=== PATIENT | male | born 1975 | race Hispanic/Latino ===

== ENCOUNTER 2016-04-28 08:59 | Emergency (ER) | payer OTHER ==
[2016-04-28 09:03] VITALS: BP 135/84
--- NOTE | 2016-04-28 09:20 | ED GENERAL ADULT ---
History of Present Illness General Chief Complaint: Sore Throat, Dental Pain Stated Complaint: SORE THROAT Source: patient Exam Limitations: no limitations Vital Signs & Intake/Output Vital Signs & Intake/Output Vital Signs Date Time Temp Pulse Resp B/P Pulse O2 O2 Flow FiO2 Ox Delivery Rate 04/28 0903 97.5 68 20 135/84 99 Room Air Allergies Coded Allergies: No Known Allergies (04/28/16) Reconcile Medications Amoxicillin/Potassium Clav (Augmentin 875-125 Tablet) 875 MG-125 MG TABLET 1 TAB PO BID TONSILITIS Lidocaine HCl (Lidocaine HCl Viscous) 2 % SOLUTION 15 ML PO 4 TIMES/DAY PRN SORE THROAT Methylprednisolone. (Medrol) 4 MG TAB.DS.PK 1 DP PO AD TONSILITIS 6 on day 1 then reduce by one tablet daily until gone Triage Note: PT PRESENTS TO ER C/O OF SORETHROAT THAT STARTED A FEW DAYS AGO. PT DENIES FEVERS, PT AFEBRILE ON ARRIVAL. PT STATES IT IS HARD TO SWALLOW. Triage Nurses Notes Reviewed? yes Onset: Gradual Duration: day(s): (2) Timing: remote history Injury Environment: home Severity: moderate Severity Numbers: 7 Modifying Factors: Worsens With: other (SWALLOWING). HPI: Patient is a 40-year-old male presenting to the emergency department with chief complaint of sore throat that's been going on for the past 2 days with associated chills and fevers. Fevers were tactile. Did not take his temperature. No sick contacts or recent travel. Denies taking anything to help with symptoms. Pain is worse with eating. Pike is achy and sharp. Denies any nausea or vomiting. (PRINCE CALLAWAY) Past History Travel History Traveled to [place] past 21 day No Medical History Any Pertinent Medical History? see below for history Neurological: NONE EENT: NONE Cardiovascular: NONE Surgical History Surgical History: non-contributory Psychosocial History What is your primary language Marshallese Tobacco Use: Never used Family History Hx Contributory? No (PRINCE CALLAWAY) Review of Systems Review of Systems Constitutional: Reports: chills, fever, malaise. Comments Review of systems: See HPI, All other systems negative. Constitutional, no weight loss HEENT: No visual changes no congestion Cardiovascular: No chest pain ,palpitation , orthopnea or ankle swelling Skin, no jaundice no rashes Respiratory: No dyspnea cough sputum or hemoptysis GI: No nausea no vomiting : No dysuria No hematuria Muscle skeletal: no back pain, no neck pain, Neurologic: No numbness no confusion, no headaches Psych: No stress anxiety or depression,. Heme/endocrine: No bruising no bleeding no polyuria or polydipsia Immunology: No splenectomy or history of AIDS (PRINCE CALLAWAY) Physical Exam Physical Exam General Appearance: well developed/nourished, no apparent distress, alert, awake , comfortable Comments: Well-developed well-nourished person in no acute distress HEENT: Pupils equally round and reactive to light and accommodation. Nose is atraumatic. External auditory canal and Tympanic membranes clear. Pharynx moderately erythematous, bilateral tonsillar enlargement, left greater than right. White exudates bilaterally. Clearing secretions without difficulty. No obvious peritonsillar abscess. Neck: Supple, bilateral cervical lymphadenopathy, nontender, normal range of motion without pain or tenderness Back: Nontender Cardiac :Regular rate and rhythms no murmurs rubs or gallops, normal JVP Respiratory: Chest nontender. No respiratory distress.breath sounds clear to auscultation bilaterally Neuro: Alert oriented x3 Skin: No appreciable rash on exposed skin, skin is warm and dry. Psych: Mood and affect is normal, memory and judgment is normal. Core Measures ACS in differential dx? No CVA/TIA Diagnosis: No Severe Sepsis Present: No Septic Shock Present: No (PRINCE CALLAWAY) Progress Differential Diagnoses I considered the following diagnoses in my evaluation of the patient: tonsillitis, pharyngitis, strep, peritonsillar abscess Plan of Care: Orders Procedure Date/time Status THROAT CULTURE W/QUICK STREP 04/28 904 Active Initial ED EKG: none (PRINCE CALLAWAY) Departure Departure Time of Disposition: 924 Disposition: HOME OR SELF CARE Condition: Stable Clinical Impression Primary Impression: Acute bacterial tonsillitis Referrals: LAVERNE OROURKE MD PATIENT HAS NO PRIMARY CARE DR (PCP/Family) Additional Instructions: Follow-up with ear nose and throat call to make appointment. Take antibiotics, steroids and use mouthwash as directed. Return for worsening symptoms or concerns. Increase fluids. Departure Forms: Customer Survey General Discharge Information Prescriptions: Current Visit Scripts Lidocaine HCl (Lidocaine HCl Viscous) 15 ML PO 4 TIMES/DAY PRN SORE THROAT #200 ML Methylprednisolone. (Medrol) 1 DP PO AD #1 DP 6 on day 1 then reduce by one tablet daily until gone Amoxicillin/Potassium Clav (Augmentin 875-125 Tablet) 1 TAB PO BID #20 TAB (PRINCE CALLAWAY) PA/AUTOMATION TEST ENGINEER Co-Sign Statement Statement: ED Attending supervision documentation- [] I saw and evaluated the patient. I have also reviewed all the pertinent lab results and diagnostic results. I agree with the findings and the plan of care as documented in the PA's/AUTOMATION TEST ENGINEER's documentation. x I have reviewed the ED Record and agree with the PA's/AUTOMATION TEST ENGINEER's documentation. [] Additions or exceptions (if any) to the PAs/AUTOMATION TEST ENGINEER's note and plan are summarized below: [] (KARAN GARNER,FREDY) Critical Care Note Critical Care Note Critical Care Time: non-applicable (PRINCE CALLAWAY)
[2016-04-28] MEDS ORDERED: LIDOCAINE HCL V15 ML PO (09:26)
[2016-04-28] MEDS ORDERED: MEDROL4 M2 PO (09:26)
[2016-04-28] MEDS ORDERED: AUGMENTIN 875-1 EACH PO (09:26)
== END 2016-04-28 09:31 ==
LOC: ERH 08:59
DX: J03.90 Acute tonsillitis, unspecified (principal)
CPT/HCPCS: 87147

== ENCOUNTER 2016-05-09 00:40 | Emergency (ER) | payer OTHER ==
[~2016-05-09] VITALS: Ht 180.3 cm; Wt 84.4 kg
[~2016-05-09 00:40] MED LIST: AUGMENTIN 875-1 EACH PO; LIDOCAINE HCL V15 ML PO; MEDROL4 M2 PO
[2016-05-09 00:55] VITALS: BP 138/89
--- NOTE | 2016-05-09 01:31 | ED HEAD/FACIAL INJ COMPLAINT ---
History of Present Illness General Chief Complaint: General Adult Stated Complaint: "I DONT KNOW HAVE LUMP ON MY FACE" Source: patient Exam Limitations: no limitations Vital Signs & Intake/Output Vital Signs & Intake/Output Vital Signs Date Time Temp Pulse Resp B/P Pulse O2 O2 Flow FiO2 Ox Delivery Rate 05/09 0055 97.3 63 18 138/89 98 Room Air Allergies Coded Allergies: No Known Allergies (04/28/16) Reconcile Medications Amoxicillin/Potassium Clav (Augmentin 875-125 Tablet) 875 MG-125 MG TABLET 1 TAB PO BID TONSILITIS Cephalexin (Keflex) 500 MG CAPSULE 1 CAP PO 4 TIMES/DAY cellulitis Ibuprofen 800 MG TABLET 1 TAB PO TID PRN pain Lidocaine HCl (Lidocaine HCl Viscous) 2 % SOLUTION 15 ML PO 4 TIMES/DAY PRN SORE THROAT Methylprednisolone. (Medrol) 4 MG TAB.DS.PK 1 DP PO AD TONSILITIS 6 on day 1 then reduce by one tablet daily until gone Sulfamethoxazole/Trimethoprim (Bactrim Ds Tablet) 800 MG-160 MG TABLET 1 TAB PO BID cellulitis Triage Note: PT TO TRIAGE COMPLAINING OF RIGHT JAW PAIN. PT STATES HE STARTED TO NOTICE REDNESS ON TUESDAY, AND SWELLING BEGAN YESTERDAY. 12/07 JABBING PAIN. Triage Nurses Notes Reviewed? yes Onset: Gradual Severity: mild, moderate Location: rIGHT LOWER CHIN Method of Injury: unknown Loss of Consciousness: no loss of consciousness Associated Symptoms: REDNESS, TENDERNESS, SWELLING HPI: 40-year-old gentleman presents with redness tenderness and swelling of his right lower cheek. He states he is uncertain how it started. He has no dental pain, fever, problems swallowing. He is otherwise well and has no other concerns. Past History Travel History Traveled to [place] past 21 day No Medical History Any Pertinent Medical History? 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 No Review of Systems Review of Systems Constitutional: Reports: no symptoms. EENTM: Reports: no symptoms. Respiratory: Reports: no symptoms. Cardiovascular: Reports: no symptoms. GI: Reports: no symptoms. Genitourinary: Reports: no symptoms. Musculoskeletal: Reports: no symptoms. Skin: Reports: no symptoms. Neurological/Psychological: Reports: no symptoms. Hematologic/Endocrine: Reports: no symptoms. Immunologic/Allergic: Reports: no symptoms. All Other Systems: Reviewed and Negative Physical Exam Physical Exam General Appearance: well developed/nourished, mild distress Head: RIGHT LOWER CHIN WITH AN AREA APPROXIMATELY 3 X 3 CM OF INDURATION AND REDNESS AND TENDERNESS. tHERE IS NO FLUCTUATION CONSISTENT WITH ABSCESS. hE HAS NO DENTAL ABNORMALITIES. Eyes: Bilateral: PERRL, EOMI. Ears, Nose, Throat: normal pharynx, normal ENT inspection, hearing grossly normal Neck: normal inspection, supple Respiratory: normal breath sounds Cardiovascular: regular rate/rhythm Gastrointestinal: soft, non-tender Back: normal inspection Extremities: normal inspection, normal range of motion, no edema Psychiatric: awake, alert, oriented x 3 Cranial Nerves: normal hearing, normal speech, PERRL Skin: intact, normal color, warm/dry Lymphatic: no anterior cervical charlie Progress Differential Diagnosis: CELLULITIS VERSUS ABSCESS Plan of Care: No sign of abscess. However, we discussed this at length. I prescribed Keflex and Bactrim. I advised him to return to the emergency department if not feeling better later on Tuesday night to consider reevaluation. Departure Departure Disposition: HOME OR SELF CARE Condition: Stable Clinical Impression Primary Impression: Cellulitis Referrals: PATIENT HAS NO PRIMARY CARE DR (PCP/Family) Departure Forms: Customer Survey General Discharge Information Prescriptions: Current Visit Scripts Sulfamethoxazole/Trimethoprim (Bactrim Ds Tablet) 1 TAB PO BID #20 TAB Cephalexin (Keflex) 1 CAP PO 4 TIMES/DAY #40 CAP Ibuprofen 1 TAB PO TID PRN pain #30 TAB
[2016-05-09] MEDS ORDERED: KEFLEX500 M1 PO (01:32)
[2016-05-09] MEDS ORDERED: BACTRIM DS TAB1 EACH PO (01:32)
[2016-05-09] MEDS ORDERED: IBUPROFEN800 M1 PO (01:33)
== END 2016-05-09 01:54 ==
LOC: ERH 00:40
DX: L03.211 Cellulitis of face (principal)

== ENCOUNTER 2016-05-09 19:46 | Inpatient (IN) | payer OTHER ==
[~2016-05-09] VITALS: Ht 180.3 cm; Wt 84.4 kg
[~2016-05-09 19:46] MED LIST changes: +BACTRIM DS TAB1 EACH PO; +IBUPROFEN800 M1 PO; +KEFLEX500 M1 PO
--- NOTE | 2016-05-09 20:28 | ED SKIN/ALLERGY COMPLAINT ---
History of Present Illness General Chief Complaint: Skin Rash/ Abcess Stated Complaint: CELLULITIS?, WAS HERE LAST NIGHT Source: patient, old records Exam Limitations: no limitations Vital Signs & Intake/Output Vital Signs & Intake/Output Vital Signs Date Time Temp Pulse Resp B/P Pulse O2 O2 Flow FiO2 Ox Delivery Rate 05/093 97.9 73 18 125/79 98 Room Air 05/098 98.7 77 18 147/83 98 Room Air ED Intake and Output 05/10 0000 05/09 1200 Intake Total 250 Output Total Balance 250 Intake, IV 250 Patient 186 lb Weight Allergies Coded Allergies: No Known Allergies (04/28/16) Reconcile Medications Cephalexin (Keflex) 500 MG CAPSULE 1 CAP PO 4 TIMES/DAY cellulitis Ibuprofen 800 MG TABLET 1 TAB PO TID PRN pain Sulfamethoxazole/Trimethoprim (Bactrim Ds Tablet) 800 MG-160 MG TABLET 1 TAB PO BID cellulitis Triage Note: PT WAS SEEN HERE LAST PM FOR R SIDE FACIAL CELLULITIS, STARTED ON BACTRIM AND KEFLEX. STATES THAT ITS NOT GETTING BETTER. Triage Nurses Notes Reviewed? yes HPI: Patient is a 40 year old male presents for evaluation of worsening infection to the right side of his face. Patient reports symptoms onset 2 days ago with a small "pimple" to the right mandibular area. Patient squeezed the area with minimal white discharge. Yesterday onset of redness and swelling. Seen in the emergency department at approximately 0100 today and placed on keflex, bactrim and ibuprofen. Has taken 1 dose of bactrim, 3 doses of keflex and reports that swelling and redness are worsening. Pain is throbbing, 10/10, worsens with palpation. Denies fevers, difficulty swallowing, dental or intraoral pain, nausea, vomiting. (NKECHI NICHOLSON) Past History Travel History Traveled to [place] past 21 day No Medical History Any Pertinent Medical History? 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 No (NKECHI NICHOLSON) Review of Systems Review of Systems Constitutional: Denies: chills, fever. EENTM: Denies: throat pain, throat swelling, mouth pain, tooth pain. Respiratory: Denies: cough, short of breath. Cardiovascular: Denies: chest pain. GI: Denies: abdominal pain, nausea, vomiting. Musculoskeletal: Reports: no symptoms. Skin: Reports: see HPI. Neurological/Psychological: Reports: headache. Hematologic/Endocrine: Reports: no symptoms. Immunologic/Allergic: Reports: no symptoms. (NKECHI NICHOLSON) Physical Exam Physical Exam General Appearance: alert, awake Head: 5 cm x 5 cm round erythematous, indurated area to the right mandibular area No palpable fluctance. Extends to the sublingual/submandibular area on the right side. Eyes: Bilateral: normal appearance. Ears, Nose, Throat: normal pharynx, normal ENT inspection, hearing grossly normal, no dental tenderness Neck: mild right sublingual/submandibular edema and tenderness Respiratory: normal breath sounds, no respiratory distress, lungs clear Cardiovascular: regular rate/rhythm Back: normal inspection, normal range of motion Extremities: normal inspection, normal capillary refill, normal range of motion, no edema Neurologic/Psych: no motor/sensory deficits, awake, alert, oriented x 3, normal gait Skin: see head exam Lymphatic: right submandibular lymphadenopathy (NKECHI NICHOLSON) Progress Differential Diagnosis: abscess/cellulitis, odontogenic abscess, sepsis, osteomyelitis Plan of Care: Orders Procedure Date/time Status Full Liquid Diet 05/10 B Active CBC WITHOUT DIFFERENTIAL 05/10 06 Active BASIC ELECTROLYTES PLUS BUN&CR 05/10 0600 Active Add-on Test (ER Only) 05/10 0046 Active Pathway - chart 05/10 0037 Active Patient Data 05/10 0037 Active LACTIC ACID 05/10 0037 Active House Staff 05/10 UNK Active VTE Mechanical Prophylaxis 05/10 UNK Active Vital Signs 05/10 UNK Active Patient Data 05/09 2332 Active Saline Lock 05/10 2055 Active Misc Message 05/10 2055 Active ED Holding Orders 05/10 2055 Active Admit to inpatient 05/10 2055 Active Vital Signs 05/10 2055 Active Code Status 05/10 2055 Active GLYCOSYLATED HGB 05/09 2029 Active BLOOD CULTURE 05/10 2023 Active LACTIC ACID 05/10 2023 Active CBC WITHOUT DIFFERENTIAL 05/10 2023 Complete BASIC METABOLIC PANEL 05/10 2023 Active Intake & Output 05/09 2001 Active Current Medications Sig/Anisha Start time Last Medication Dose Stop Time Status Admin Acetaminophen 650 MG Q6P PRN 05/10 44 UNVr (Tylenol) Ampicillin Sodium/ 1,500 MG Q6 05/10 44 UNVr Sulbactam Sodium (Unasyn) Sodium Chloride 100 ML (Normal Saline 0.9%) Ketorolac 15 MG Q8P PRN 05/10 44 UNVr Tromethamine (Toradol) Morphine Sulfate 4 MG Q4P PRN 05/10 44 AC (Morphine) Sodium Chloride 1,000 ML SEE RATE 05/10 44 UNVr (Normal Saline 0.9%) Vancomycin HCl 1,000 MG Q12 05/10 44 UNir Dextrose/Water 250 ML (D5W) Laboratory Tests 05/09/16 2324: Lactic Acid Cancelled 05/09/16 2030: Anion Gap 12, Estimated GFR > 60, BUN/Creatinine Ratio 11.0, Glucose 116 H, Hemoglobin A1c Pending, Lactic Acid 1.9, Calcium 9.6, CBC w Diff MAN DIFF ORDERED, RBC 5.21, MCV 86.8, MCH 28.0, RDW 13.9, MPV 7.1 L, Gran % 84.6 H, Lymphocytes % 6.4 L, Monocytes % 7.0, Eosinophils % 1.7, Basophils % 0.3, Absolute Granulocytes 20.7 H, Segmented Neutrophils 77 H, Band Neutrophils 3, Absolute Lymphocytes 1.6, Lymphocytes 9 L, Monocytes 9, Absolute Monocytes 1.7 H, Eosinophils 2, Absolute Eosinophils 0.4, Absolute Basophils 0.1, Platelet Estimate ADEQUATE, Normochromic RBCs VERIFIED, PUBS MCHC 32.3 L Microbiology 05/09 2056 BLOOD: Blood Culture - RECD 05/09 2029 BLOOD: Blood Culture - RECD Discussed with and seen by Dr. Valenzuela. Dr. Valenzuela saw patient overnight, reports infection worsening, recommends admission for IV antibiotics. Discussed with Dr. mcallister: if surgery will consult on patient then can admit to her service, if surgery thinks that patient will require transfer then patient should be transferred this evening. 05/09/2016 11:21:38 PM: Discussed with Dr. Huerta: warm compresses, elevate head of bed, will see patient tomorrow morning in consultation (ZARA AMAYA,NKECHI) Diagnostic Imaging: Viewed by Me: CT Scan. Discussed w/RAD: CT Scan. Radiology Impression: PATIENT: MAKENZIE BHAT PRESENT AGE: 40 PATIENT ACCOUNT NO: [id number] : 74 LOCATION: [facility] ORDERING PHYSICIAN: NKECHI AMAYA SERVICE DATE: 05/09/16 EXAM TYPE: CAT - CT MAXILLOFACIAL W CONT EXAMINATION: CT MAXILLOFACIAL WITH CONTRAST CLINICAL INFORMATION: Right-sided facial swelling extending to the submandibular region. COMPARISON: None. TECHNIQUE: Multidetector helical imaging was performed in the axial plane with generation of coronal and sagittal reformatted images. The examination was performed after the administration of 94 mL of Optiray 320 intravenous contrast DLP: 691 mGy-cm. FINDINGS: Prominent asymmetric subcutaneous swelling in the right face adjacent to the right mandible and extending to the right submandibular region. There is a 0.8 x 0.7 x approximately 2.0 cm hypodense, thinly peripherally enhancing structure in this region, concerning for phlegmon/early abscess formation (see long images). No other discrete fluid collection is demonstrated. Overlying skin thickening is noted. There is an enlarged submental lymph node measuring 1.8 cm. An additional left parasagittal submental lymph node measures 1 cm. The visualized portions of the submandibular and parotid glands are unremarkable. The aerodigestive tract is patent. The epiglottis and aryepiglottic folds are unremarkable in appearance. No prevertebral soft tissue swelling. Visualized portions of brain demonstrate no acute intracranial abnormalities. No acute orbital abnormalities. The paranasal sinuses are aerated. Dental hardware limits local evaluation. No acute osseous abnormality. No convincing osseous erosion. IMPRESSION: 1. Asymmetric soft tissue swelling about the right inferior face consistent with inflammation/infection. Local phlegmon/early abscess formation (see long images). 2. A prominent submental lymph node is nonspecific and likely reactive. DICTATED BY: KOBI DEY MD DATE/TIME DICTATED:05/09/162156 ACTIVITY AIDE: EMELINA DATE/TIME TRANSCRIBED:05/09/162156 CONFIDENTIAL, DO NOT COPY WITHOUT APPROPRIATE AUTHORIZATION. <Electronically signed in Other Vendor System> SIGNED BY: KOBI DEY MD 05/09/16 4262 (NKECHI NICHOLSON) Departure Departure Time of Disposition: 2321 Disposition: STILL A PATIENT Condition: Stable Clinical Impression Primary Impression: Phlegmonous cellulitis Secondary Impressions: Cellulitis of face Referrals: PATIENT HAS NO PRIMARY CARE DR (PCP/Family) Departure Forms: Customer Survey General Discharge Information Admission Note Spoke With: CATERINA MCALLISTER MD Documentation of Exam: Documentation of any treatments & extenuating circumstances including Concerns Regarding Discharge (functional status, medication knowledge or non-compliance, living conditions, etc.) that warrant an admission rather than observation: IV antibiotics, head elevation, warm compresses, plastic surgery consultation. Patient failing outpatient therapy (NKECHI NICHOLSON) PA/HEAVY CLEANER Co-Sign Statement Statement: ED Attending supervision documentation- [] I saw and evaluated the patient. I have also reviewed all the pertinent lab results and diagnostic results. I agree with the findings and the plan of care as documented in the PA's/HEAVY CLEANER's documentation. [x] I have reviewed the ED Record and agree with the PA's/HEAVY CLEANER's documentation. [] Additions or exceptions (if any) to the PAs/HEAVY CLEANER's note and plan are summarized below: [] (KATERINE GARNER,JYOTSNA Cameron)
[2016-05-09 21:14] LABS: ABSOLUTE BASOPHIL COUNT 0.1 /CUMM (0.0-0.2); ABSOLUTE EOSINOPHIL COUNT 0.4 /CUMM (0.0-0.7); ABSOLUTE GRANULOCYTE CT 20.7 /CUMM (1.4-6.5); ABSOLUTE LYMPH COUNT 1.6 /CUMM (1.2-3.4); ABSOLUTE MONOCYTE COUNT 1.7 /CUMM (0.10-0.60); BASOPHIL % 0.3 % (0.0-2.0); EOSINOPHIL % 1.7 % (0-5); GRANULOCYTE % 84.6 % (42.2-75.2); HEMATOCRIT 45.3 % (42-52); MEAN CORPUSCULAR HGB CONC 32.3 G/DL (33.0-37.0); MEAN CORPUSCULAR VOLUME 86.8 FL (80.0-94.0); MEAN PLATELET VOLUME 7.1 FL (7.4-10.4); PLATELET COUNT 367 /CUMM (130-400); RBC DISTRIBUTION WIDTH 13.9 % (11.5-14.5); RED BLOOD CELL CT 5.21 /CUMM (4.70-6.10); WHITE BLOOD CELL COUNT 24.5 /CUMM (4.8-10.8)
--- NOTE | 2016-05-09 22:19 | CT SCAN REPORT ---
EXAMINATION: CT MAXILLOFACIAL WITH CONTRAST CLINICAL INFORMATION: Right-sided facial swelling extending to the submandibular region. COMPARISON: None. TECHNIQUE: Multidetector helical imaging was performed in the axial plane with generation of coronal and sagittal reformatted images. The examination was performed after the administration of 94 mL of Optiray 320 intravenous contrast DLP: 691 mGy-cm. FINDINGS: Prominent asymmetric subcutaneous swelling in the right face adjacent to the right mandible and extending to the right submandibular region. There is a 0.8 x 0.7 x approximately 2.0 cm hypodense, thinly peripherally enhancing structure in this region, concerning for phlegmon/early abscess formation (see long images). No other discrete fluid collection is demonstrated. Overlying skin thickening is noted. There is an enlarged submental lymph node measuring 1.8 cm. An additional left parasagittal submental lymph node measures 1 cm. The visualized portions of the submandibular and parotid glands are unremarkable. The aerodigestive tract is patent. The epiglottis and aryepiglottic folds are unremarkable in appearance. No prevertebral soft tissue swelling. Visualized portions of brain demonstrate no acute intracranial abnormalities. No acute orbital abnormalities. The paranasal sinuses are aerated. Dental hardware limits local evaluation. No acute osseous abnormality. No convincing osseous erosion. IMPRESSION: 1. Asymmetric soft tissue swelling about the right inferior face consistent with inflammation/infection. Local phlegmon/early abscess formation (see long images). 2. A prominent submental lymph node is nonspecific and likely reactive.
--- NOTE | 2016-05-09 23:55 | History & Physical ---
EDDIE GARNER,[facility] 05/09/16 2354: General Information and HPI MD Statement: I have seen and personally examined MAKENZIE BHAT and documented this H&P. The patient is a 40 year old M who presented with a patient stated chief complaint of right facial swelling. Source of Information: patient Exam Limitations: no limitations History of Present Illness: This is a 40-year-old gentleman with no known past medical history is as to [facility] with chief complaint of progressively worsening right-sided facial swelling. Patient reports onset of the swelling to be about 2 days ago when he felt intense pain and was informed by his that his face looks swollen. Patient described the pain as throbbing and stabbing and rated 10 out of 10 when it's worse. Patient decided to present to the ED the following day and was evaluated and sent home with Bactrim and cephalexin. He reports that his swelling worsened without any relief and decided to come back again to the ED today. Patient denies any recent facial trauma, tooth infection, dental work, insect bites, recent facial hair shaving, fever or chills. Of note, patient was seen on April 28 for what was believed to be sore throat and possibly tooth pain? and was sent home with Augmentin and Medrol Dosepak. Patient denies any vision changes, ear pain or discharge, shortness of breath, dizziness, lightheadedness, chest pain, palpitation, muscle pain, abdominal pain or dysuria. 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 EENTM: Reports: no symptoms. Denies: eye pain, eye drainage. Cardiovascular: Reports: no symptoms. Respiratory: Reports: no symptoms. GI: Reports: no symptoms. Genitourinary: Reports: no symptoms. Musculoskeletal: Reports: no symptoms. Skin: Reports: see HPI. Neurological/Psychological: Reports: no symptoms. Hematologic/Endocrine: Reports: no symptoms. Exam & Diagnostic Data Last 24 Hrs of Vital Signs/I&O Vital Signs Date Time Temp Pulse Resp B/P Pulse O2 O2 Flow FiO2 Ox Delivery Rate 05/10 0638 99.5 75 18 146/88 96 Room Air 05/10 0215 100.0 78 18 146/94 97 Room Air 05/10 0123 99.3 83 18 143/92 96 Nasal 2.0L Cannula 05/09 2243 97.9 73 18 125/79 98 Room Air 05/09 1948 98.7 77 18 147/83 98 Room Air Intake & Output 05/10 0800 05/10 0000 05/09 1600 Intake Total 250 Output Total Balance 250 Intake, IV 250 Patient 84.368 kg 84.368 kg Weight Physical Exam General Appearance Alert, Oriented X3, Cooperative Skin erythema on the right mandibular facial area. HEENT PERRLA, EOMI, Mucous Membr. moist/pink, erytheatous inferior right facial area around mandible and submandible area, tenderness to touch. Neck Supple, No JVD, No thryomegaly, +2 Carotid Pulse wo Bruit, No LAD Lymphatic Cervical nl Cardiovascular Regular Rate, Normal S1, Normal S2, No Murmurs, Gallops, Rubs Lungs Clear to Auscultation, Normal Air Movement Abdomen Normal Bowel Sounds, Soft, No Tenderness, No Hepatospenomegaly Neurological Normal Speech, Sensation Intact Extremities No Clubbing, No Cyanosis, No Edema, Normal Pulses Assessment/Plan Assessment: This is a 40-year-old gentleman with no known past medical history is presenting for evaluation of progressively worsening right facial swelling with pain. Patient status post 1 day antibiotics with cefazolin and Bactrim with reported increased pain and swelling. Patient is noted to have leukocytosis with white blood count of 24.5 with 77% segmented neutrophils. Radiological finding CT maxillofacial shows asymmetric soft tissue swelling about the right inferior face consistent with inflammation/ infection and Local phlegmon/early abscess formation. Plastics was notified by ED staff who recommended starting antibiotics with possible drainage tomorrow morning. Assessment and plan #Right-sided facial swelling 2 day onset of right-sided facial swelling with progressively worsening and increased pain, leukocytosis noted and positive radiological finding. Most likely acute cellulitis with signs of impending abscess formation. Plan * Admitted to general medicine floor * Will start patient IV Unasyn and vancomycin * Will await further plastic recommendation (Dr. Kincaid has already been notified and is planning on an I&D tomorrow) * Maintain bed elevation * Will follow-up on blood cultures * Will trend lactic acid * Will keep patient on full liquid diet * Will obtain A1c to screen for diabetes As Ranked By This Provider Problem List: 1. Cellulitis of face Core Measures/Miscellaneous Acute Coronary Syndrome ACS Diagnosis: No Cerebrovascular Accident CVA/TIA Diagnosis: No Congestive Heart Failure CHF Diagnosis: No Venous Thromboembolism VTE Risk Factors: Age > 40 [facility] prophylaxis d/t: No contraindications No VTE Pharm Prophylaxis d/t: No contraindications VTE Diagnosis: No VTE Type: NONE VTE Confirmed by (Test): NONE Severe Sepsis Severe Sepsis Present: No Septic Shock Septic Shock Present: No Miscellaneous Documentation Attending Case Discussed With: CATERINA PALMA MD Primary Care Physician: PATIENT HAS NO PRIMARY CARE DR Patient sees these Specialists none Level of Patient Care: General Medicine ALVARADO HACKETT 05/09/16 2355: Resident Review Statement Resident Statement: examined this patient, discussed with r d internship, agreed with r d internship Other Findings: Patient is a 40-year-old gentleman with no significant past medical history presented to the ED for the evaluation of right-sided facial swelling Patient mentioned that he noticed swelling on the right lower side of his face about 2 days ago, without any evidence of trauma/infection that progressively gotten worse. Reported 10/10 throbbing pain in the swelling without any radiation. Patient denied any fever or chills. Denied any difficulty swallowing /intraoral or dental pain. Denied any tick bites/recent travels/hiking. Denied any recent oral /dental procedures Patient was seen in the ER last night and was discharged on Bactrim and Keflex .patient took 1 dose of Bactrim with 3 doses of Keflex without any improvement in his symptoms and came to the ER for further evaluation. In the ED patient was given 1 time dose of IV vancomycin and Toradol with some improvement in his symptoms. Review of system was negative. Of note patient was treated for sore throat with Augmentin and Medrol recently. Patient is not up-to-date with his vaccine.Has not seen a physician for a while. Patient is a nonsmoker and does not drink denies any illicit drug use. Pertinent labs on admission temperature 98.7, pulse 77, respiratory rate 18, blood pressure 147/83 on room air. Appearance: Alert and oriented 3 , moderate distress Skin: Grossly normal. Right-sided- Erythematous, indurated swelling , nonfluctuant ,5 x 5 cm in size around the right mandibular area , extending to the right the sublingual/submandibular . HEENT: PEERLA Neck: Supple, No JVD Cardiovascular: Regular Rate, Normal S1, Normal S2, No Murmurs Lungs: Lungs clear to auscultation bilaterally Abdomen: No abdominal discomfort positive bowel sounds Neurological: Neuro exam intact grossly Extremities: No Clubbing, No Cyanosis, No Edema. Vascular: Normal Pulses. Pertinent labs on admission Leukocytosis 24.5 with granulocytosis, normal BEP, normal lactic acid level. CT maxillofacial region showed Asymmetric soft tissue swelling about the right inferior face consistent with inflammation/infection. Local phlegmon/early abscess formation (see long images). A prominent submental lymph node is nonspecific and likely reactive. Assessment and plan: 1. Right-sided maxillofacial cellulitis with underlying abscess: * We'll admit the patient GenMed floor * Plastic surgeon Dr. Kincaid has been contacted by the ED physician, recommended to start the patient on IV antibiotics. * We'll start the patient on IV Unasyn to cover strep A and anaerobes continue with IV vancomycin for possible underlying MRSA. * Trended lactic acid levels * Blood cultures have been sent, but of antibiotics according to the cultures. * We will check hemoglobin A1c * Continue with warm/cold compresses * Keep head end of the bed elevated * Continue with gentle hydration * Severe pain controlled with IV morphine continue Toradol for moderate pain controlled. * Full liquid diet for now. * Patient will be evaluated by the plastic surgeon tomorrow for possible incision and drainage of the abscess. 2. Moderate to severe pain controlled with Toradol and IV morphine. 3.ALPS for now for possible surgical intervention tomorrow. Patient is full code CATERINA PALMA 05/10/16 0308: Attending MD Review Statement Attending Statement Attending MD Statement: examined this patient, discuss w/resident/PA/AUTOMOTIVE TIRE TECHNICIAN, agreed w/resident/PA/AUTOMOTIVE TIRE TECHNICIAN, reviewed EMR data (avail), reviewed images, amended to note Attending Assessment/Plan: CC: right sided facial redness and swelling PMH: none Patient came for worsening facial redness, swelling, pain. Patient was in ER last night for same, was discharged on Keflex and Bactrim, took one dose at home , still the redness and pain was getting worse so came to ER. His symptoms started 2 days back, mentions that broke up with pain and swelling. Pain is throbbing, 10/10, worsens with palpation, painful to open his mouth completely. He Denies fevers, difficulty swallowing, dental or intraoral pain or trauma, facial trauma, nausea, vomiting. He was in ER 10 days back for flulike symptoms and sore throat, was discharged on Augmentin (Medrol Dose pack and lidocaine viscous mouthwash), completed the course and was much better. He had blisters on upper lip during that illness which is healing now. "I also broke up in hives" even before antibiotics were started, but everything got better. Vitals: T max 99.3, HR, RR, blood pressure, O2 saturation in acceptable range. On examination : Obvious facial deformity secondary to swelling and inflammation and right side of the face in the mandibular area, mouth symmetrical. Area is indurated without fluctuation, swelling extends up to submandibular region, poor dental hygiene, no pus could be expressed from buccal mucosa, no obvious intraoral trauma, submandibular lymphadenopathy. Pharynx erythematous, nose and ear examination unremarkable. Neck supple. CVS: S1-S2, RRR. RS: Clear to auscultate bilaterally. Abdomen: Soft, NT, bowel sounds present. No focal neurological deficits, cranial nerves intact, extraocular movements intact. Labs: WBC 24.5, neutrophils 84% , bands 3, BMP unremarkable, glucose 116, lactate 1.9. CT maxillofacial with contrast: Prominent asymmetric subcutaneous swelling in the right face adjacent to the right mandible and extending to the right submandibular region. thinly peripherally enhancing structure in this region, concerning for phlegmon/early abscess formation. A and P #1 right-sided facial cellulitis in mandibular area with phlegmon: There is no obvious fluctuation on clinical examination, but facial symmetry is present, induration present , skin is tense, and shiny secondary to inflammation, patient obviously in pain, cannot open mouth completely. Unclear if this is originating form skin and subcutaneous tissue Vs any trauma from buccal mucosa, or dental involvement, given location in submandibular area and associated lymphadenopathy. Patient obviously has poor dental hygiene. - Continue broad-spectrum antibiotic for now with vancomycin and Unasyn - Plastic surgery consult in a.m. for possible I&D - b/c 2 - Repeat CBC, BMP in a.m., check HbA1c, trend lactate - Adequate pain control with Toradol every 8 hours when necessary for severe pain and morphine every 4 hours when necessary for moderate pain. - Cold compresses, full liquid diet #2 DVT prophylaxis with heparin
[2016-05-10 02:15] VITALS: BP 146/94
--- NOTE | 2016-05-10 03:10 | Admission Certification ---
Admission Certification Certification Statement - As attending physician, I certify that at the time of - admission, based on clinical presentation, severity of - symptoms, need for further diagnostic testing and - therapeutic interventions, and risk of adverse outcomes - without in-hospital treatment, in my clinical assessment, - this patient requires an acute hospital stay for a minimum - of two nights or longer. I have also considered psychsocial - factors such as support system, advanced age, financial - issues, cognitive issues, and failed out-patient treatments, - past re-admission history, safety of patient, and lack of - compliance as applicable. Specific rationale supporting this admission is: Cellulitis and abscess formation on face on right mandibular and submandibular area, failed outpatient treatment
[2016-05-10 06:38] VITALS: BP 146/88
--- NOTE | 2016-05-10 07:31 | PN- Housestaff ---
JEFFERY GARNER,[facility] 05/10/16 0730: Subjective Follow-up For: Fascial abscess Subjective: Patient was seen and examined this morning, he reported CVA or 10 out of 10 throbbing pain of right jaw, he received morphine this morning but still complaining of pain. Patient denied any fever, chills, recent trauma, dental work, dental caries, gum injury, sinusitis. He denied any headache (patient has history of migraine not on any medication), visual changes, or dietary changes. Patient reported that the swelling is extending to oral cavity and he is unable to chew appropriately. Patient denied any shortness of breath, difficulty swallowing. ROS is negative. Review of Systems Constitutional: Reports: see HPI. Objective Last 24 Hrs of Vital Signs/I&O Vital Signs Date Time Temp Pulse Resp B/P Pulse O2 O2 Flow FiO2 Ox Delivery Rate 05/10 0638 99.5 75 18 146/88 96 Room Air 05/10 0215 100.0 78 18 146/94 97 Room Air 05/10 0123 99.3 83 18 143/92 96 Nasal 2.0L Cannula 05/09 2243 97.9 73 18 125/79 98 Room Air 05/09 1948 98.7 77 18 147/83 98 Room Air Intake & Output 05/10 1600 05/10 0800 05/10 0000 Intake Total 570 250 Output Total Balance 570 250 Intake, IV 350 250 Intake, Oral 220 Number 1 Bowel Movements Patient 84.368 kg 84.368 kg Weight Physical Exam General Appearance: Alert, Oriented X3, Cooperative, No Acute Distress Skin: swelling and erythema of right jaw, warm and tender to palpation HEENT: Atraumatic, PERRLA, EOMI, Mucous Membr. moist/pink, oral cavity examination, no tonsillar enlargement, no obvious mucous membrane laceration, patient had dental workup of lower molars and canines of both sides Neck: Supple Lymphatic: no cervical lymphadenopathy Cardiovascular: Regular Rate, Normal S1, Normal S2, No Murmurs Lungs: Clear to Auscultation, Normal Air Movement Abdomen: Normal Bowel Sounds, Soft, No Tenderness Neurological: Normal Gait, Normal Speech, Strength at 5/5 X4 Ext, Normal Tone, Sensation Intact, Cranial Nerves 3-12 NL, Reflexes 2+ Extremities: No Clubbing, No Cyanosis, No Edema, Normal Pulses Assessment/Plan Assessment: This is a 40-year-old gentleman with no known past medical history is presenting for evaluation of progressively worsening right facial swelling with pain. Patient status post 1 day antibiotics with cefazolin and Bactrim with reported increased pain and swelling. CT maxillofacial May 09 FINDINGS: Prominent asymmetric subcutaneous swelling in the right face adjacent to the right mandible and extending to the right submandibular region. There is a 0.8 x 0.7 x approximately 2.0 cm hypodense, thinly peripherally enhancing structure in this region, concerning for phlegmon/early abscess formation (see long images). No other discrete fluid collection is demonstrated. Overlying skin thickening is noted. There is an enlarged submental lymph node measuring 1.8 cm. An additional left parasagittal submental lymph node measures 1 cm. The visualized portions of the submandibular and parotid glands are unremarkable. The aerodigestive tract is patent. The epiglottis and aryepiglottic folds are unremarkable in appearance. No prevertebral soft tissue swelling. Visualized portions of brain demonstrate no acute intracranial abnormalities. No acute orbital abnormalities. The paranasal sinuses are aerated. Dental hardware limits local evaluation. No acute osseous abnormality. No convincing osseous erosion. IMPRESSION: 1. Asymmetric soft tissue swelling about the right inferior face consistent with inflammation/infection. Local phlegmon/early abscess formation (see long images). 2. A prominent submental lymph node is nonspecific and likely reactive. Assessment and plan #Right-sided facial swelling 2 day onset of right-sided facial swelling with progressively worsening and increased pain, leukocytosis noted and positive radiological finding, doesn't respond to outpatient Keflex and Bactrim. Problem list #Facial abscess -Patient reports severe pain -Optimal pain medication Percocet 1 tab every 4 scheduled dose, tramadol 50 every 6 when necessary, acetaminophen 650 mg every 6 when necessary, morphine IV 4 mg every 4 when necessary -Plastic surgery consultation was obtained thanks for recommendation -ID consultation was obtained thanks for recommendation -We'll increase dose of Unasyn to 3000 mg every 6 and DC vancomycin -No need for I&D given the small size of the abscess size (0.8 x 0.7 x 2.0 cm), will continue hot compressor, plastic surgery reevaluation within 48 hours for possible I&D -Patient has fever and high white blood cell but no tachypnea or tachycardia ( doesn't met SIERS criteria), however lactic acid was trended down -CBC every day -Follow-up blood culture -We'll obtain wound culture -Patient can show appropriately giving the pain and the swelling, patient was kept on full liquid diet Code full DVT prophylaxis Alps Diet full liquid diet Consultation ID and plastic surgery Problem List: 1. Cellulitis Pain Ratin Pain Location: Right mandibular Pain Goal: Pain 4 or less Pain Plan: Percocet 1 tab every 4 scheduled dose, tramadol 50 every 6 when necessary, acetaminophen 650 mg every 6 when necessary, morphine IV 4 mg every 4 when necessary Tomorrow's Labs & Rationales: IELNE MARTIN MD 05/10/16 2104: Attending MD Review Statement Attending Statement Attending MD Statement: examined this patient, discuss w/resident/PA/POLISHER IMPLANT, agreed w/resident/PA/POLISHER IMPLANT, discussed with family, reviewed EMR data (avail), discussed with nursing, discussed with case mgmt, reviewed images, amended to note Attending Assessment/Plan: The patient was seen and discussed with house staff. Appreciate surgery and ID input. Agree with the plan of care as outlined.
[2016-05-10 08:53] LABS: ABSOLUTE BASOPHIL COUNT 0 /CUMM (0.0-0.2); ABSOLUTE EOSINOPHIL COUNT 0.3 /CUMM (0.0-0.7); ABSOLUTE GRANULOCYTE CT 19.7 /CUMM (1.4-6.5); ABSOLUTE LYMPH COUNT 1.8 /CUMM (1.2-3.4); ABSOLUTE MONOCYTE COUNT 1.9 /CUMM (0.10-0.60); BASOPHIL % 0 % (0.0-2.0); EOSINOPHIL % 1.1 % (0-5); GRANULOCYTE % 83.5 % (42.2-75.2); HEMATOCRIT 43.3 % (42-52); MEAN CORPUSCULAR HGB 28.4 PG (27.0-31.0); MEAN CORPUSCULAR HGB CONC 32.8 G/DL (33.0-37.0); MEAN CORPUSCULAR VOLUME 86.7 FL (80.0-94.0); MEAN PLATELET VOLUME 7.5 FL (7.4-10.4); PLATELET COUNT 325 /CUMM (130-400); RBC DISTRIBUTION WIDTH 13.8 % (11.5-14.5); WHITE BLOOD CELL COUNT 23.6 /CUMM (4.8-10.8)
--- NOTE | 2016-05-10 13:56 | PN- Student ---
TIMUR ONEILL 05/10/16 1329: Subjective Subjective: The Manager Decision Support physician and I visited the pt at around 8:15am today. He was laying in bed awake when we arrived. He was cooperative but endoresed 10/10 pain. He said the pain medication helps a little but as soon as it starts to wear off, the pain comes right back. He states that he is unable to eat anything that requires chewing and has stuck to liquids including yogurt/pudding. He says "he just wants to get it all out" referring to the pressure build up in the erythematous indurated mass on the right lower face. He also said the pain was now spreading to his neck on the R side and R lip and inner oral mucosa. He also pointed to an area of peeling skin on his R mandible that was not present prior to today. He was informed that surgeons were being consulted and we would get back to him with the action plan as they were finalized. Objective Objective: Physical Exam: Gen: NAD. A&O x 3 Card: S1 S2 appreciated Resp: CTAB Head/Face: no pain on palpation of L face, increased tenderness to palpation getting closer to R side, no tenderness of TMJ palpation B/L, extreme tenderness on palpation of induration on R mandible. Pt unable to open mouth wide so examination of oral cavity was limited. Digital palpation of R side buccal mucosa proved to be extremely tender and firm. New focal area 0.5cm.x 0.5cm of peeling skin present on lower R mandible Ear: no erythema in external auditory canal or pain on palpation B/L Extremities: no lower extremity edema Vital Signs Date Time Temp Pulse Resp B/P Pulse O2 O2 Flow FiO2 Ox Delivery Rate 05/10 0638 99.5 75 18 146/88 96 Room Air 05/10 0215 100.0 78 18 146/94 97 Room Air 05/10 0123 99.3 83 18 143/92 96 Nasal 2.0L Cannula 05/09 2243 97.9 73 18 125/79 98 Room Air 05/09 1948 98.7 77 18 147/83 98 Room Air Laboratory Tests 05/10/16 0935: PT 12.0, INR 1.14 05/10/16 0720: Lactic Acid 0.6 L 05/10/16 0720: Anion Gap 8, Estimated GFR > 60, BUN/Creatinine Ratio 13.8, CBC w Diff NO MAN DIFF REQ, RBC 5.00, MCV 86.7, MCH 28.4, RDW 13.8, MPV 7.5, Gran % 83.5 H, Lymphocytes % 7.4 L, Monocytes % 8.0, Eosinophils % 1.1, Basophils % 0 L, Absolute Granulocytes 19.7 H, Absolute Lymphocytes 1.8, Absolute Monocytes 1.9 H, Absolute Eosinophils 0.3, Absolute Basophils 0, PUBS MCHC 32.8 L 05/09/162323: Lactic Acid Cancelled 05/09/162029: Anion Gap 12, Estimated GFR > 60, BUN/Creatinine Ratio 11.0, Glucose 116 H, Hemoglobin A1c 5.6, Lactic Acid 1.9, Calcium 9.6, CBC w Diff MAN DIFF ORDERED, RBC 5.21, MCV 86.8, MCH 28.0, RDW 13.9, MPV 7.1 L, Gran % 84.6 H, Lymphocytes % 6.4 L, Monocytes % 7.0, Eosinophils % 1.7, Basophils % 0.3, Absolute Granulocytes 20.7 H, Segmented Neutrophils 77 H, Band Neutrophils 3, Absolute Lymphocytes 1.6, Lymphocytes 9 L, Monocytes 9, Absolute Monocytes 1.7 H, Eosinophils 2, Absolute Eosinophils 0.4, Absolute Basophils 0.1, Platelet Estimate ADEQUATE, Normochromic RBCs VERIFIED, PUBS MCHC 32.3 L Microbiology Date/Time Procedure - Status Source Growth 05/09 2056 Blood Culture - RES BLOOD Results Results: Laboratory Tests 05/10/16 0935: PT 12.0, INR 1.14 05/10/16 0720: Lactic Acid 0.6 L 05/10/16 0720: Anion Gap 8, Estimated GFR > 60, BUN/Creatinine Ratio 13.8, CBC w Diff NO MAN DIFF REQ, RBC 5.00, MCV 86.7, MCH 28.4, RDW 13.8, MPV 7.5, Gran % 83.5 H, Lymphocytes % 7.4 L, Monocytes % 8.0, Eosinophils % 1.1, Basophils % 0 L, Absolute Granulocytes 19.7 H, Absolute Lymphocytes 1.8, Absolute Monocytes 1.9 H, Absolute Eosinophils 0.3, Absolute Basophils 0, PUBS MCHC 32.8 L 05/09/162323: Lactic Acid Cancelled 03/12/17 2030: Anion Gap 12, Estimated GFR > 60, BUN/Creatinine Ratio 11.0, Glucose 116 H, Hemoglobin A1c 5.6, Lactic Acid 1.9, Calcium 9.6, CBC w Diff MAN DIFF ORDERED, RBC 5.21, MCV 86.8, MCH 28.0, RDW 13.9, MPV 7.1 L, Gran % 84.6 H, Lymphocytes % 6.4 L, Monocytes % 7.0, Eosinophils % 1.7, Basophils % 0.3, Absolute Granulocytes 20.7 H, Segmented Neutrophils 77 H, Band Neutrophils 3, Absolute Lymphocytes 1.6, Lymphocytes 9 L, Monocytes 9, Absolute Monocytes 1.7 H, Eosinophils 2, Absolute Eosinophils 0.4, Absolute Basophils 0.1, Platelet Estimate ADEQUATE, Normochromic RBCs VERIFIED, PUBS MCHC 32.3 L Microbiology 05/09 2056 BLOOD: Blood Culture - RES 05/09 2029 BLOOD: Blood Culture - RES Assessment/Plan Assessment: 40yo M with a PMHx of Strep G (+) tonsillitis 2 wks ago s/p Augmentin and Medrol Dosepak and a prior ED visit 2 days ago for R-sided facial swelling who was sent home with bactrim and cephalexin was admitted yesterday after another ED visit for worsening R-sided facial swelling and pain most likely a small abscess with overlying cellulitis. WBC = 24.5 with L shift. Maxillofacial CT with contrast shows asymmetric soft tissue swelling about the right inferior face consistent with inflammation/infection and local phlegmon/early abscess formation. Plastics is currently on board but time of I&D unknown - may cconsider adding ENT consult if plastics is getting delayed. Plan: R-sided facial abscess and cellulitis - 1st day on general medicine floor - maintained on IV Unasyn and Vanco to cover most G/+, G/- and anaerobic pathogens - Will await further plastic recommendation (Dr. Huerta has been notified and awaiting further instruction) - encourage pt to maintain bed elevation to decrease blood flow to face - F/u on heme lab values to monitor leukocytosis - 24.5 (05/09) --> 23.6 (05/10) - trend lactic acid to monitor changes in inflammatory process - 1.9 (05/09) --> 0.6 (05/10) Pain - pt offered IV analgesia PRN - tramadol, Percocet, morphine, toradol, tylenol Diet - NPO in case of surgical intervention DVT ppx - SCDs Further inquiries - Will obtain A1c to screen for diabetes ILENE GALAN MD 05/11/16 1314: Attending MD Review Statement Attending Sign Off Attending Cosign Statement: I have: examined this patient, reviewed [facility] EMR data, agreed w/resident/PA/TECHNOLOGIES DIVISION CHAIR , amended to note. Other Findings: Agree with above.
[2016-05-10 14:55] VITALS: BP 150/90
--- NOTE | 2016-05-10 15:59 | Cons- Plastic Surgery ---
General Information and HPI Consulting Request Date of Consult: 05/10/16 Requested By: ILENE GALAN MD Reason for Consult: Right facial cellulitis Source of Information: patient Exam Limitations: no limitations History of Present Illness: 40-year-old male admitted to [facility] yesterday with right facial cellulits. Patient seen recently at the emergency room for similiar symptoms and prescibed Bactrim with Keflex. Patient returned yesterday due to increased swelling and pain. Patient admits to a recent strep tonsillitis and was treated with antibiotics with Medrol Dosepak. 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 Home Services at Home: None Smoking Status: Never Smoked ETOH Use: denies use Illicit Drug Use: denies illicit drug use Exam & Diagnostic Data Vital Signs and I&O Vital Signs Date Time Temp Pulse Resp B/P Pulse O2 O2 Flow FiO2 Ox Delivery Rate 05/10 1455 99.5 80 18 150/90 95 Room Air 05/10 0638 99.5 75 18 146/88 96 Room Air 05/10 0215 100.0 78 18 146/94 97 Room Air 05/10 0123 99.3 83 18 143/92 96 Nasal 2.0L Cannula 05/09 2243 97.9 73 18 125/79 98 Room Air 05/09 1948 98.7 77 18 147/83 98 Room Air Intake & Output 05/10 1600 05/10 0800 05/10 0000 05/09 1600 05/09 0800 05/09 0000 Intake Total 120 570 250 Output Total Balance 120 570 250 Intake, IV 350 250 Intake, Oral 120 220 Number 1 1 Bowel Movements Patient 186 lb 186 lb Weight Physical Exam Head: Right facial swelling, erythema, and tenderness. Right sided chin with 2 cm area of whitish luceny, tender, no draiange Intra-oral exam-right buccal swelling and tenderness, poor dental hygiene Imaging Results: CT Maxillofacial- asymmetry, SQ swelling adjacent to right mandible extending to right submandibular region, 0.8 x 0.7 x 2 cm hypodense region Assessment/Plan Assessment/Plan 40 yo male with right facial cellulitis questionable facial abscess -Conservative management no surgical intervention at this time -Continue IV antibiotics -Monitor WBC -HOB elevation -Warm compresses -Recommend ENT and Dental Consult -Will re-evaluate patient in 48 hours -Discussed with patient, family, nursing, and medical staff Problem List: 1. Cellulitis of face Consult Acknowledgment - Thank you for your consult request. Attending MD Review Statement Attending Statement Attending MD Statement: examined this patient, discuss w/resident/PA/PLAYROOM ATTENDANT, discussed with family
--- NOTE | 2016-05-10 17:23 | Cons- Infect Disease ---
General Information and HPI Consulting Request Date of Consult: 05/10/16 Requested By: ILENE GALAN MD Reason for Consult: Abscess in the rightmandibular/submandibular area Source of Information: patient, family, old records History of Present Illness: This is a 40-year-old man with no significant past medical history seen in the emergency room 11 days prior to admission with the acute onset of sore throat and dysphagia, found to be afebrile with quick strep negative, discharged on a 10 day course of Augmentin and a Medrol pack with rapid improvement and with the throat culture found to be positive for Group G strep, seen in the emergency room on the morning of admission with a one-day history of right mandibular pain , swelling and erythema, found to be afebrile with a white blood cell count of 25,000, discharged on Keflex and Bactrim, admitted later that day after returning to the emergency room with persistent pain. On admission he was initially afebrile but did develop a low-grade fever to 100. Laboratory data revealed a white blood cell count of 24,000, BUN/creatinine [address] of the maxillofacial area revealed asymmetric subcutaneous swelling in the right side of the face adjacent to the right mandible and extending to the right submandibular region, with a 0.8 x 0.7 x 2 cm hypodense, thinly peripherally enhancing structure in this region. He was begun on Unasyn and Vancomycin. He has been afebrile so far today but notes no improvement in the pain or swelling. Allergies/Medications Allergies: Coded Allergies: No Known Allergies (04/28/16) Home Med List: Cephalexin (Keflex) 500 MG CAPSULE 1 CAP PO 4 TIMES/DAY cellulitis Ibuprofen 800 MG TABLET 1 TAB PO TID PRN pain Sulfamethoxazole/Trimethoprim (Bactrim Ds Tablet) 800 MG-160 MG TABLET 1 TAB PO BID cellulitis Past History Travel History Traveled to [place] past 21 day No Medical History Blood Transfusion Hx: No Neurological: NONE EENT: NONE Cardiovascular: NONE Respiratory: NONE Gastrointestinal: NONE Hepatic: NONE Renal: NONE Musculoskeletal: NONE Psychiatric: NONE Endocrine: NONE Blood Disorders: NONE 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 Home Services at Home: None Smoking Status: Never Smoked ETOH Use: denies use Illicit Drug Use: denies illicit drug use Review of Systems Review of Systems Constitutional: Denies: chills. EENTM: Denies: throat pain. Respiratory: Denies: cough, short of breath. All Other Systems: Reviewed and Negative Exam & Diagnostic Data Last 24 Hrs of Vital Signs/I&O Vital Signs Date Time Temp Pulse Resp B/P Pulse O2 O2 Flow FiO2 Ox Delivery Rate 05/10 1455 99.5 80 18 150/90 95 Room Air 05/10 0638 99.5 75 18 146/88 96 Room Air 05/10 0215 100.0 78 18 146/94 97 Room Air 05/10 0123 99.3 83 18 143/92 96 Nasal 2.0L Cannula 05/09 2243 97.9 73 18 125/79 98 Room Air 05/09 1948 98.7 77 18 147/83 98 Room Air Intake & Output 05/10 1600 05/10 0800 05/10 0000 Intake Total 120 570 250 Output Total Balance 120 570 250 Intake, IV 350 250 Intake, Oral 120 220 Number 1 1 Bowel Movements Patient 186 lb 186 lb Weight Physical Exam Other Physical Findings: He is awake and alert in no acute distress. MAXIMUM TEMPERATURE 100. Skin reveals no rash. HEENT exam reveals erythema, edema and induration over the right mandible, very tender to palpation, with the development of pustules in the submandibular area. Neck is supple with no adenopathy. Lungs are clear. Heart regular rhythm with no murmur. Abdomen is soft, nontender with positive bowel sounds. Back no CVA tenderness. Extremities no cyanosis, clubbing or edema. Neuro is without focality. Last 24 Hours of Lab Results: Laboratory Tests 05/10 05/10 05/10 0935 0720 0720 Chemistry Sodium (137 - 145 mmol/L) 135 L Potassium (3.5 - 5.1 mmol/L) 4.2 Chloride (98 - 107 mmol/L) 102 Carbon Dioxide (22 - 30 mmol/L) 26 Anion Gap (5 - 16) 8 BUN (9 - 20 mg/dL) 11 Creatinine (0.7 - 1.2 mg/dL) 0.8 Estimated GFR (>60 ml/min) > 60 BUN/Creatinine Ratio (7 - 25 %) 13.8 Lactic Acid (0.7 - 2.1 mmol/L) 0.6 L Coagulation PT (9.4 - 12.5 SEC) 12.0 INR (0.90 - 1.17) 1.14 Hematology CBC w Diff NO MAN DIFF REQ WBC (4.8 - 10.8 /CUMM) 23.6 H RBC (4.70 - 6.10 /CUMM) 5.00 Hgb (14.0 - 18.0 G/DL) 14.2 Hct (42 - 52 %) 43.3 MCV (80.0 - 94.0 FL) 86.7 MCH (27.0 - 31.0 PG) 28.4 RDW (11.5 - 14.5 %) 13.8 Plt Count (130 - 400 /CUMM) 325 MPV (7.4 - 10.4 FL) 7.5 Gran % (42.2 - 75.2 %) 83.5 H Lymphocytes % (20.5 - 51.1 %) 7.4 L Monocytes % (1.7 - 9.3 %) 8.0 Eosinophils % (0 - 5 %) 1.1 Basophils % (0.0 - 2.0 %) 0 L Absolute Granulocytes (1.4 - 6.5 /CUMM) 19.7 H Absolute Lymphocytes (1.2 - 3.4 /CUMM) 1.8 Absolute Monocytes (0.10 - 0.60 /CUMM) 1.9 H Absolute Eosinophils (0.0 - 0.7 /CUMM) 0.3 Absolute Basophils (0.0 - 0.2 /CUMM) 0 PUBS MCHC (33.0 - 37.0 G/DL) 32.8 L 05/09 05/09 2324 2030 Chemistry Sodium (137 - 145 mmol/L) 139 Potassium (3.5 - 5.1 mmol/L) 4.0 Chloride (98 - 107 mmol/L) 100 Carbon Dioxide (22 - 30 mmol/L) 28 Anion Gap (5 - 16) 12 BUN (9 - 20 mg/dL) 11 Creatinine (0.7 - 1.2 mg/dL) 1.0 Estimated GFR (>60 ml/min) > 60 BUN/Creatinine Ratio (7 - 25 %) 11.0 Glucose (65 - 99 mg/dL) 116 H Hemoglobin A1c (4.2 - 5.8 %) 5.6 Lactic Acid (0.7 - 2.1 mmol/L) Cancelled 1.9 Calcium (8.4 - 10.2 mg/dL) 9.6 Hematology CBC w Diff MAN DIFF ORDERED WBC (4.8 - 10.8 /CUMM) 24.5 H RBC (4.70 - 6.10 /CUMM) 5.21 Hgb (14.0 - 18.0 G/DL) 14.6 Hct (42 - 52 %) 45.3 MCV (80.0 - 94.0 FL) 86.8 MCH (27.0 - 31.0 PG) 28.0 RDW (11.5 - 14.5 %) 13.9 Plt Count (130 - 400 /CUMM) 367 MPV (7.4 - 10.4 FL) 7.1 L Gran % (42.2 - 75.2 %) 84.6 H Lymphocytes % (20.5 - 51.1 %) 6.4 L Monocytes % (1.7 - 9.3 %) 7.0 Eosinophils % (0 - 5 %) 1.7 Basophils % (0.0 - 2.0 %) 0.3 Absolute Granulocytes (1.4 - 6.5 /CUMM) 20.7 H Segmented Neutrophils (42.2 - 75.2 %) 77 H Band Neutrophils (0.0 - 5.0 %) 3 Absolute Lymphocytes (1.2 - 3.4 /CUMM) 1.6 Lymphocytes (20.5 - 51.1 %) 9 L Monocytes (1.7 - 9.3 %) 9 Absolute Monocytes (0.10 - 0.60 /CUMM) 1.7 H Eosinophils (0 - 5.0 %) 2 Absolute Eosinophils (0.0 - 0.7 /CUMM) 0.4 Absolute Basophils (0.0 - 0.2 /CUMM) 0.1 Platelet Estimate (ADEQUATE) ADEQUATE Normochromic RBCs VERIFIED PUBS MCHC (33.0 - 37.0 G/DL) 32.3 L Last 24 Hours of Andrei Results: Blood cultures May 09 negative Diagnostic Data Recent Imaging Findings: CT of the maxillofacial area revealed asymmetric subcutaneous swelling in the right side of the face adjacent to the right mandible and extending to the right submandibular region, with a 0.8 x 0.7 x 2 cm hypodense, thinly peripherally enhancing structure in this region. Assessment/Plan Assessment/Plan Impression: This is a 40-year-old man with no significant past medical history treated for a Group G strep pharyngitis 11 days prior to admission admitted on May 09 with the acute onset of right mandibular swelling, erythema and pain, found to have a low-grade fever with a marked leukocytosis and with a CT scan of the maxillofacial area revealing subcutaneous swelling in this area with the development of a phlegmon/early abscess. Given the timing of the recent throat infection secondary to Group G strep suspect that this current infection is, in some way, related to it, but the CT does not demonstrate any evidence for this, with no odontogenic or bone abnormalities.noted. The inflammation appears to be pointing towards the surface, with evidence of early pustules, and it may ultimately drain on its own; however, if it does not and the inflammation worsens, formal drainage may be necessary, either under IR or by Plastic surgery. Am most concerned about covering Group G strep, along with anaerobes and, possibly, Staph aureus, and feel that Unasyn alone should be adequate coverage pending further cultures. Suggestion: 1. Warm compresses to the right mandibular area 2. Attempt to aspirate one of the pustules for culture 3. Plastic surgery follow-up and/or repeat imaging based on clinical status 4. Discontinue Vancomycin 5. Increase Unasyn to 3 g IV every 6 hours Consult Acknowledgment - Thank you for your consult request.
--- NOTE | 2016-05-10 21:45 | Cons- Ear,Nose&Throat ---
General Information and HPI Consulting Request Date of Consult: 05/10/16 Requested By: ILENE AGLAN MD Reason for Consult: Right facial cellulitis Recent history of acute tonsillopharyngitis secondary to strep G Source of Information: patient Exam Limitations: no limitations History of Present Illness: Was admitted for increasing pain and swelling and induration of the right mandibular region. By history he was recently treated with a 10 day course of Augmentin and a Medrol Dosepak for acute tonsillopharyngitis. Shortly after completing the course he noted discomfort in the right submandiblar area which gradually became indurated and quite tender. He does wear a henao I was asked to evaluate his oropharynx to determine if there is any relationship with his recent tonsillopharyngitis and the present infection on his skin. Allergies/Medications Allergies: Coded Allergies: No Known Allergies (04/28/16) Home Med List: Cephalexin (Keflex) 500 MG CAPSULE 1 CAP PO 4 TIMES/DAY cellulitis Ibuprofen 800 MG TABLET 1 TAB PO TID PRN pain Sulfamethoxazole/Trimethoprim (Bactrim Ds Tablet) 800 MG-160 MG TABLET 1 TAB PO BID cellulitis Current Medications: Current Medications Sig/Anisha Start time Last Medication Dose Route Stop Time Status Admin Acetaminophen 650 MG Q6P PRN 05/10 0045 05/10 PO 1917 Ampicillin Sodium/ 3,000 MG Q6 05/10 1800 AC 05/10 Sulbactam Sodium IV 1911 Sodium Chloride 100 ML Ampicillin Sodium/ 0 .STK-MED ONE 05/10 0102 DC Sulbactam Sodium .ROUTE Ampicillin Sodium/ 1,500 MG Q6H 05/10 0100 DC 05/10 Sulbactam Sodium IV 1240 Sodium Chloride 100 ML Ketorolac 15 MG Q8P PRN 05/10 0045 DC 05/10 Tromethamine IV 05/15 0044 0832 Morphine Sulfate 0 .STK-MED ONE 05/10 0108 DC .ROUTE Morphine Sulfate 4 MG Q4P PRN 05/10 0045 05/10 IV 0700 Oxycodone/ 1 TAB Q4P PRN 05/10 1115 DC Acetaminophen PO Patient Medication 1 ED .STK-MED ONE 05/10 1407 DC Teaching ED 05/10 1408 Patient Medication 1 UNIT ONE NR 05/10 1200 DC Teaching ED 05/10 1800 Sodium Chloride 1,000 ML Q13H 05/10 0045 AC 05/10 IV 1240 Tramadol HCl 50 MG Q6P PRN 05/10 1145 AC 05/10 PO 1240 Vancomycin HCl 1,000 MG Q12H 05/10 0900 DC 05/10 Dextrose/Water 250 ML IV 0832 Past History Medical History Blood Transfusion Hx: No Neurological: NONE EENT: NONE Cardiovascular: NONE Respiratory: NONE Gastrointestinal: NONE Hepatic: NONE Renal: NONE Musculoskeletal: NONE Psychiatric: NONE Endocrine: NONE Blood Disorders: NONE 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 Home Services at Home: None Smoking Status: Never Smoked ETOH Use: denies use Illicit Drug Use: denies illicit drug use Exam & Diagnostic Data Vital Signs and I&O Vital Signs Date Time Temp Pulse Resp B/P Pulse O2 O2 Flow FiO2 Ox Delivery Rate 05/10 1455 99.5 80 18 150/90 95 Room Air 05/10 0638 99.5 75 18 146/88 96 Room Air 05/10 0215 100.0 78 18 146/94 97 Room Air 05/10 0123 99.3 83 18 143/92 96 Nasal 2.0L Cannula 05/09 2243 97.9 73 18 125/79 98 Room Air Intake & Output 05/10 1600 05/10 0800 05/10 0000 05/09 1600 05/09 0800 05/09 0000 Intake Total 120 570 250 Output Total Balance 120 570 250 Intake, IV 350 250 Intake, Oral 120 220 Number 1 1 Bowel Movements Patient 186 lb 186 lb Weight Physical Exam: The patient is seen at the bedside He is awake and alert and in no acute distress. Examination of his face that he has a henao and there is evidence of folliculitis of the mandibular area with small pustules. There was 1 larger pustule of approximately 8 mm in the submental region. The area is tender The ears and nose and oropharynx were otherwise unremarkable. 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 His tonsils are mildly enlarged but are not inflamed have no exudate. The neck examination reveals that his neck is supple with no significant adenopathy Last 24 Hours of Labs: Laboratory Tests 05/10 05/10 05/10 0935 0720 0720 Chemistry Sodium (137 - 145 mmol/L) 135 L Potassium (3.5 - 5.1 mmol/L) 4.2 Chloride (98 - 107 mmol/L) 102 Carbon Dioxide (22 - 30 mmol/L) 26 Anion Gap (5 - 16) 8 BUN (9 - 20 mg/dL) 11 Creatinine (0.7 - 1.2 mg/dL) 0.8 Estimated GFR (>60 ml/min) > 60 BUN/Creatinine Ratio (7 - 25 %) 13.8 Lactic Acid (0.7 - 2.1 mmol/L) 0.6 L Coagulation PT (9.4 - 12.5 SEC) 12.0 INR (0.90 - 1.17) 1.14 Hematology CBC w Diff NO MAN DIFF REQ WBC (4.8 - 10.8 /CUMM) 23.6 H RBC (4.70 - 6.10 /CUMM) 5.00 Hgb (14.0 - 18.0 G/DL) 14.2 Hct (42 - 52 %) 43.3 MCV (80.0 - 94.0 FL) 86.7 MCH (27.0 - 31.0 PG) 28.4 RDW (11.5 - 14.5 %) 13.8 Plt Count (130 - 400 /CUMM) 325 MPV (7.4 - 10.4 FL) 7.5 Gran % (42.2 - 75.2 %) 83.5 H Lymphocytes % (20.5 - 51.1 %) 7.4 L Monocytes % (1.7 - 9.3 %) 8.0 Eosinophils % (0 - 5 %) 1.1 Basophils % (0.0 - 2.0 %) 0 L Absolute Granulocytes (1.4 - 6.5 /CUMM) 19.7 H Absolute Lymphocytes (1.2 - 3.4 /CUMM) 1.8 Absolute Monocytes (0.10 - 0.60 /CUMM) 1.9 H Absolute Eosinophils (0.0 - 0.7 /CUMM) 0.3 Absolute Basophils (0.0 - 0.2 /CUMM) 0 PUBS MCHC (33.0 - 37.0 G/DL) 32.8 L 05/09 2324 Chemistry Lactic Acid Cancelled Assessment/Plan Assessment/Plan Impression: Right mandibular area cellulitis with folliculitis No evidence of acute oral pharyngeal infection at this time and I do not feel that the recent infection is directly related to his present cellulitis Recommendation as noted by infectious disease consultation #1 warm compresses #2 continue antibiotics #3 consider drainage for culture Problem List: 1. Cellulitis of face Consult Acknowledgment - Thank you for your consult request. Attending MD Review Statement Attending Statement Attending MD Statement: examined this patient
[2016-05-10 22:19] VITALS: BP 125/75
[2016-05-11 05:41] VITALS: BP 138/72
[2016-05-11 08:33] LABS: ABSOLUTE BASOPHIL COUNT 0.1 /CUMM (0.0-0.2); ABSOLUTE EOSINOPHIL COUNT 0.3 /CUMM (0.0-0.7); ABSOLUTE GRANULOCYTE CT 20.9 /CUMM (1.4-6.5); ABSOLUTE LYMPH COUNT 1.3 /CUMM (1.2-3.4); ABSOLUTE MONOCYTE COUNT 1.8 /CUMM (0.10-0.60); BASOPHIL % 0.2 % (0.0-2.0); GRANULOCYTE % 85.9 % (42.2-75.2); HEMATOCRIT 43.2 % (42-52); MEAN CORPUSCULAR HGB 28.3 PG (27.0-31.0); MEAN CORPUSCULAR HGB CONC 32.5 G/DL (33.0-37.0); MEAN CORPUSCULAR VOLUME 87.1 FL (80.0-94.0); MEAN PLATELET VOLUME 7.3 FL (7.4-10.4); PLATELET COUNT 338 /CUMM (130-400); RBC DISTRIBUTION WIDTH 13.6 % (11.5-14.5); RED BLOOD CELL CT 4.96 /CUMM (4.70-6.10)
--- NOTE | 2016-05-11 09:12 | PN- Housestaff ---
JEFFERY GARNER,[facility] 05/11/16 0912: Subjective Follow-up For: Fascial abscess Subjective: Patient was seen and examined this morning, his temperature is 99.3 with Tmax 99.5, rest of vital signs are stable, continued to saturate well on room air. Patient reported that he had difficulty opening his right eye this morning when he woke up, reported worsening of the right facial maxillary swelling, denied any discharge. She denied shortness of breath, cough, headache, blurry vision, ear pain, dizziness. Review of Systems Constitutional: Reports: see HPI. Objective Last 24 Hrs of Vital Signs/I&O Vital Signs Date Time Temp Pulse Resp B/P Pulse O2 O2 Flow FiO2 Ox Delivery Rate 05/11 0541 99.3 88 20 138/72 98 05/10 2219 98.3 72 20 125/75 96 Room Air 05/10 1455 99.5 80 18 150/90 95 Room Air Intake & Output 05/11 1600 05/11 0800 05/11 0000 Intake Total 840 780 Output Total Balance 840 780 Intake, IV 600 300 Intake, Oral 240 480 Physical Exam General Appearance: Alert, Oriented X3, Cooperative, Mild Distress Skin: No Rashes HEENT: PERRLA, EOMI, Mucous Membr. moist/pink, right fissure maxillary swelling, erythema, warm and tender to touch, over the inferior border of the right mandibular bone there is a small area 2 x 2 cm of skin peeling Neck: Supple Lymphatic: no cervical lymphadenopathy Cardiovascular: Regular Rate, Normal S1, Normal S2, No Murmurs Lungs: Clear to Auscultation, Normal Air Movement Abdomen: Normal Bowel Sounds, Soft, No Tenderness Neurological: Normal Gait, Normal Speech, Strength at 5/5 X4 Ext, Normal Tone, Sensation Intact, Cranial Nerves 3-12 NL, Reflexes 2+ Extremities: No Clubbing, No Cyanosis, No Edema, Normal Pulses Assessment/Plan Assessment: This is a 40-year-old gentleman with no known past medical history is presenting for evaluation of progressively worsening right facial swelling with pain. Patient status post 1 day antibiotics with cefazolin and Bactrim with reported increased pain and swelling. CT maxillofacial May 09 FINDINGS: Prominent asymmetric subcutaneous swelling in the right face adjacent to the right mandible and extending to the right submandibular region. There is a 0.8 x 0.7 x approximately 2.0 cm hypodense, thinly peripherally enhancing structure in this region, concerning for phlegmon/early abscess formation (see long images). No other discrete fluid collection is demonstrated. Overlying skin thickening is noted. There is an enlarged submental lymph node measuring 1.8 cm. An additional left parasagittal submental lymph node measures 1 cm. The visualized portions of the submandibular and parotid glands are unremarkable. The aerodigestive tract is patent. The epiglottis and aryepiglottic folds are unremarkable in appearance. No prevertebral soft tissue swelling. Visualized portions of brain demonstrate no acute intracranial abnormalities. No acute orbital abnormalities. The paranasal sinuses are aerated. Dental hardware limits local evaluation. No acute osseous abnormality. No convincing osseous erosion. IMPRESSION: 1. Asymmetric soft tissue swelling about the right inferior face consistent with inflammation/infection. Local phlegmon/early abscess formation (see long images). 2. A prominent submental lymph node is nonspecific and likely reactive. Repeated maxillofacial CT scan 05/11/16 FINDINGS: Increasing soft tissue edema/cellulitis involving the right face inclusive of the right buccal space and superficial to the right masseter muscle and right parotid gland as well as the right perimandibular soft tissues. A peripherally enhancing fluid collection within the right perimandibular soft tissues on image 130 of series 5 measures approximately 1.4 cm in size compared to 0.8 cm previously and is most suggestive of a abscess. This is in communication with peripherally enhancing fluid that has decreased in size extending to the right submental skin surface where there is a soft tissue defect on image 63 of series 5. The collection adjacent to the skin defect measures up to 1.0 cm in AP diameter compared to 1.2 cm previously. Enlarged submental lymph nodes are stable and likely reactive. Orbital soft tissues are normal. Parotid glands and submandibular glands are unremarkable. Visualized vasculature is unremarkable. There are no acute osseous findings. No periapical disease is appreciated. The paranasal sinuses and the mastoid air cells remain well-aerated. IMPRESSION: Worsening right facial cellulitis. There is a new soft tissue skin defect within the right submental region (correlate for recent incision and drainage) and there has been a slight interval decrease in size of an abscess within the subcutaneous soft tissues immediately adjacent to the skin defect. Abscess tracking superiorly into the right perimandibular soft tissues on image 130 of series 5 appears mildly increased in size with associated myositis of the right buccinator and zygomaticus muscle. Assessment and plan #Right-sided facial swelling Prior to admission, history of 2 day onset of right-sided facial swelling with progressively worsening and increased pain, leukocytosis noted and positive radiological finding, doesn't respond to outpatient Keflex and Bactrim. Problem list #Facial abscess -On admission patient has low-grade fever and high white blood cell but no tachypnea or tachycardia (doesn't met SIERS criteria), however lactic acid was trended down -Plastic surgery consultation was obtained thanks for recommendation -ID consultation was obtained thanks for recommendation -ENT consultation was obtained given the recent history of strep tonsillitis group G, thanks for recommendation -Per ENT specialist, no relation between his recent tonsillitis and the current fascia maxillary cellulitis -Patient reports worsening pain and swelling -Optimal pain medication acetaminophen 650 mg every 6 when necessary, tramadol 50 every 6 when necessary, morphine IV 4 mg every 4 when necessary -Continue Unasyn to 3000 mg every 6 -We'll restart vancomycin given worsening of pain and swelling and elevation of WBC from 23.6 -24.3 -Repeated CT scan without contrast fascial maxillary revealed 2 sites of pus collection on the right mandibular side -Surgical consultation for I&D was obtained, drainage of 2 pus pockets were done and wound culture was sent -CBC every day -Follow-up blood culture -Follow-up wound culture -Patient can not chaw appropriately giving the pain and the swelling, patient was kept on full liquid diet Code full DVT prophylaxis Alps Diet full liquid diet Consultation ID, plastic surgery, ENT, general surgery Problem List: 1. Facial abscess Pain Ratin Pain Location: Right facial mandibular Pain Goal: Pain 4 or less Pain Plan: acetaminophen 650 mg every 6 when necessary tramadol 50 every 6 when necessary morphine IV 4 mg every 4 when necessary Tomorrow's Labs & Rationales: CBC, CMP ILENE GALAN MD 05/11/16 3006: Attending MD Review Statement Attending Statement Attending MD Statement: examined this patient, discuss w/resident/PA/SECURITY CONSULTANT, agreed w/resident/PA/SECURITY CONSULTANT, reviewed EMR data (avail), discussed with nursing, reviewed images, amended to note Attending Assessment/Plan: The patient was seen and discussed with house staff. Agree with the plan of care as outlined.
[2016-05-11 09:45] LABS: WHITE BLOOD CELL COUNT 24.3 /CUMM (4.8-10.8)
--- NOTE | 2016-05-11 12:19 | CT SCAN REPORT ---
EXAMINATION: CT MAXILLOFACIAL WITH CONTRAST CLINICAL INFORMATION: Increasing swelling of the right cheek. COMPARISON: Maxillofacial CT May 09, 2016. TECHNIQUE: Multidetector helical imaging was performed in the axial plane with generation of coronal and sagittal reformatted images. The examination was performed after the administration of 95 mL of Optiray 320 intravenous contrast FINDINGS: Increasing soft tissue edema/cellulitis involving the right face inclusive of the right buccal space and superficial to the right masseter muscle and right parotid gland as well as the right perimandibular soft tissues. A peripherally enhancing fluid collection within the right perimandibular soft tissues on image 130 of series 5 measures approximately 1.4 cm in size compared to 0.8 cm previously and is most suggestive of a abscess. This is in communication with peripherally enhancing fluid that has decreased in size extending to the right submental skin surface where there is a soft tissue defect on image 63 of series 5. The collection adjacent to the skin defect measures up to 1.0 cm in AP diameter compared to 1.2 cm previously. Enlarged submental lymph nodes are stable and likely reactive. Orbital soft tissues are normal. Parotid glands and submandibular glands are unremarkable. Visualized vasculature is unremarkable. There are no acute osseous findings. No periapical disease is appreciated. The paranasal sinuses and the mastoid air cells remain well-aerated. IMPRESSION: Worsening right facial cellulitis. There is a new soft tissue skin defect within the right submental region (correlate for recent incision and drainage) and there has been a slight interval decrease in size of an abscess within the subcutaneous soft tissues immediately adjacent to the skin defect. Abscess tracking superiorly into the right perimandibular soft tissues on image 130 of series 5 appears mildly increased in size with associated myositis of the right buccinator and zygomaticus muscle.
--- NOTE | 2016-05-11 13:23 | Cons- General Surgery ---
General Information and HPI Consulting Request Date of Consult: 05/11/16 Requested By: ILENE GALAN MD Reason for Consult: FACE ABSCESS History of Present Illness: Patient presents with cellulitis of his face. He was treated with IV antibiotics. Admission CT scan was equivocal for abscess. Plastic surgery and ENT surgery consultations were obtained who recommended medical management. Patient now has progression of the swelling and edema of his face. CT scan was read repeated and finding show 2 areas of fluid collections in the face, right- sided. I looked at the images personally and there is an abscess on the cheek and on the inframandibular region, both right-sided. Patient states that since admission to the hospital his swelling has progressed up the face. There is a scant amount of drainage in his henao that began about 1 hour ago. There is pain. No fevers Allergies/Medications Allergies: Coded Allergies: No Known Allergies (04/28/16) Home Med List: Cephalexin (Keflex) 500 MG CAPSULE 1 CAP PO 4 TIMES/DAY cellulitis Ibuprofen 800 MG TABLET 1 TAB PO TID PRN pain Sulfamethoxazole/Trimethoprim (Bactrim Ds Tablet) 800 MG-160 MG TABLET 1 TAB PO BID cellulitis Current Medications: Current Medications Sig/Anisha Start time Last Medication Dose Route Stop Time Status Admin Acetaminophen 650 MG Q6P PRN 05/10 0045 AC 05/11 PO 0732 Ampicillin Sodium/ 3,000 MG Q6 05/10 1800 AC 05/11 Sulbactam Sodium IV 1116 Sodium Chloride 100 ML Ampicillin Sodium/ 1,500 MG Q6H 05/10 0100 VT 05/10 Sulbactam Sodium IV 1240 Sodium Chloride 100 ML Morphine Sulfate 4 MG Q4P PRN 05/10 0045 05/10 IV 0700 Patient Medication 1 ED .STK-MED ONE 05/10 1407 [facility] ED 05/10 1408 Patient Medication 1 UNIT ONE NR 05/10 1200 VT Teaching ED 05/10 1800 Sodium Chloride 1,000 ML Q13H 05/10 0045 AC 05/11 IV 0426 Tramadol HCl 50 MG Q6P PRN 05/10 1145 AC 05/11 PO 1046 Vancomycin HCl 1,000 MG Q12H 05/11 1100 AC 05/11 Dextrose/Water 250 ML IV 1229 Vancomycin HCl 1,000 MG Q12H 05/10 0900 VT 05/10 Dextrose/Water 250 ML IV 0832 Past History Medical History Blood Transfusion Hx: No Neurological: NONE EENT: NONE Cardiovascular: NONE Respiratory: NONE Gastrointestinal: NONE Hepatic: NONE Renal: NONE Musculoskeletal: NONE Psychiatric: NONE Endocrine: NONE Blood Disorders: NONE Cancer(s): NONE UNION REPRESENTATIVE/Reproductive: NONE Surgical History Pertinent Surgical History: none Psychosocial History Where Do You Live? Home Services at Home: None Smoking Status: Never Smoked ETOH Use: denies use Illicit Drug Use: denies illicit drug use Review of Systems Review of Systems: No fevers chills or sweats. No chest pain no dyspnea. Remainder 12 points negative Exam & Diagnostic Data Vital Signs and I&O Vital Signs Date Time Temp Pulse Resp B/P Pulse O2 O2 Flow FiO2 Ox Delivery Rate 05/11 1119 98.4 05/11 0541 99.3 88 20 138/72 98 05/10 2219 98.3 72 20 125/75 96 Room Air 05/10 1455 99.5 80 18 150/90 95 Room Air Intake & Output 05/11 1600 05/11 0800 05/11 0000 05/10 1600 05/10 0800 05/10 0000 Intake Total 840 780 120 570 250 Output Total Balance 840 780 120 570 250 Intake, IV 600 300 350 250 Intake, Oral 240 480 120 220 Number 1 1 Bowel Movements Patient 186 lb 186 lb Weight Physical Exam: Gen.: He looks his stated age he is of normal body habitus. He has multiple tattoos over his arms. HEENT: PERRL anicteric. Edema and erythema of the right face. There is fluctuance of the cheek. There is fluctuance and expressible purulence along the mandible below the mouth, right-sided. Neck: Soft nontender normal range of motion no lymphadenopathy Chest: Nontender normal respiratory excursion normal respiratory effort, no wheezing Last 24 Hours of Labs: Laboratory Tests 05/11 06 Hematology CBC w Diff NO MAN DIFF REQ WBC (4.8 - 10.8 /CUMM) 24.3 H RBC (4.70 - 6.10 /CUMM) 4.96 Hgb (14.0 - 18.0 G/DL) 14.1 Hct (42 - 52 %) 43.2 MCV (80.0 - 94.0 FL) 87.1 MCH (27.0 - 31.0 PG) 28.3 RDW (11.5 - 14.5 %) 13.6 Plt Count (130 - 400 /CUMM) 338 MPV (7.4 - 10.4 FL) 7.3 L Gran % (42.2 - 75.2 %) 85.9 H Lymphocytes % (20.5 - 51.1 %) 5.4 L Monocytes % (1.7 - 9.3 %) 7.5 Eosinophils % (0 - 5 %) 1.0 Basophils % (0.0 - 2.0 %) 0.2 Absolute Granulocytes (1.4 - 6.5 /CUMM) 20.9 H Absolute Lymphocytes (1.2 - 3.4 /CUMM) 1.3 Absolute Monocytes (0.10 - 0.60 /CUMM) 1.8 H Absolute Eosinophils (0.0 - 0.7 /CUMM) 0.3 Absolute Basophils (0.0 - 0.2 /CUMM) 0.1 PUBS MCHC (33.0 - 37.0 G/DL) 32.5 L Imaging Results: CT scans of the maxillofacial region were reviewed. There is one dated 2016 and a second one dated 05/11/2016. Comparison shows progressive edema with abscess formation in 2 areas on the current exam. Assessment/Plan Assessment/Plan Facial abscess. It appears that this process began as folliculitis in his henao. There has been tracking of the infection superiorly to his cheek. There is fluctuance at this new site. Recommendations are to perform bedside incision and drainage of both fluid collections. Culture will be obtained. Patient's informed the risk operation including scar formation and mild bleeding. He agrees. Consult Acknowledgment - Thank you for your consult request.
--- NOTE | 2016-05-11 13:25 | Procedure ---
Minor Surgical Procedure Note Date of Procedure: 05/11/16 Procedure Note: After verbal consent, patient was prepped and draped right face. The skin overlying the 2 abscess cavities were infiltrated with local anesthesia (1% lidocaine with epinephrine). 2 separate incision sites were made, one on the right cheek and one on the right submandibular region near the chin. Both cavities contained thick purulence. A specimen sent for culture. The cheek abscess was much more deep and quarter-inch Nu Gauze was used for packing. Patient tolerated procedure well.
[2016-05-11 14:24] VITALS: BP 128/80
[2016-05-11 22:28] VITALS: BP 132/86
[2016-05-12 06:16] VITALS: BP 112/68
--- NOTE | 2016-05-12 07:17 | PN- Housestaff ---
JEFFERY GARNER,[facility] 05/12/16 0717: Subjective Follow-up For: Fascial abscess Subjective: Patient was seen and examined this morning, he reported improvement of the pain and facial swelling, he scaled pain as 4/10 achy pain, he denied fever, chills, shortness of breath, chest pain, palpitation. Patient is on full liquid diet given difficulty chewing with the pain and swelling of right mandibular region, he reported improvement of his symptoms and wish to advance his diet to regular. Review of Systems Constitutional: Reports: see HPI. Objective Last 24 Hrs of Vital Signs/I&O Vital Signs Date Time Temp Pulse Resp B/P Pulse O2 O2 Flow FiO2 Ox Delivery Rate 05/12 0616 97.9 58 20 112/68 97 05/11 2228 98.1 77 18 132/86 95 05/11 1424 98.4 65 20 128/80 95 Room Air 05/11 1119 98.4 Intake & Output 05/12 1600 05/12 0800 05/12 0000 Intake Total 900 1600 Output Total Balance 900 1600 Intake, IV 600 800 Intake, Oral 300 800 Physical Exam General Appearance: Alert, Oriented X3, Cooperative, No Acute Distress Skin: No Rashes, right faical swelling (improved), 2 incisions with packing that drains scant amount of blood HEENT: Atraumatic, PERRLA, EOMI, Mucous Membr. moist/pink Neck: Supple Cardiovascular: Regular Rate, Normal S1, Normal S2, No Murmurs Lungs: Clear to Auscultation, Normal Air Movement Abdomen: Normal Bowel Sounds, Soft, No Tenderness Neurological: Normal Gait, Normal Speech, Strength at 5/5 X4 Ext, Normal Tone, Sensation Intact, Cranial Nerves 3-12 NL, Reflexes 2+ Extremities: No Clubbing, No Cyanosis, No Edema, Normal Pulses Assessment/Plan Assessment: This is a 40-year-old gentleman with no known past medical history is presenting for evaluation of progressively worsening right facial swelling with pain. Patient status post 1 day antibiotics with cefazolin and Bactrim with reported increased pain and swelling. CT maxillofacial May 09 FINDINGS: Prominent asymmetric subcutaneous swelling in the right face adjacent to the right mandible and extending to the right submandibular region. There is a 0.8 x 0.7 x approximately 2.0 cm hypodense, thinly peripherally enhancing structure in this region, concerning for phlegmon/early abscess formation (see long images). No other discrete fluid collection is demonstrated. Overlying skin thickening is noted. There is an enlarged submental lymph node measuring 1.8 cm. An additional left parasagittal submental lymph node measures 1 cm. The visualized portions of the submandibular and parotid glands are unremarkable. The aerodigestive tract is patent. The epiglottis and aryepiglottic folds are unremarkable in appearance. No prevertebral soft tissue swelling. Visualized portions of brain demonstrate no acute intracranial abnormalities. No acute orbital abnormalities. The paranasal sinuses are aerated. Dental hardware limits local evaluation. No acute osseous abnormality. No convincing osseous erosion. IMPRESSION: 1. Asymmetric soft tissue swelling about the right inferior face consistent with inflammation/infection. Local phlegmon/early abscess formation (see long images). 2. A prominent submental lymph node is nonspecific and likely reactive. Repeated maxillofacial CT scan 05/11/16 FINDINGS: Increasing soft tissue edema/cellulitis involving the right face inclusive of the right buccal space and superficial to the right masseter muscle and right parotid gland as well as the right perimandibular soft tissues. A peripherally enhancing fluid collection within the right perimandibular soft tissues on image 130 of series 5 measures approximately 1.4 cm in size compared to 0.8 cm previously and is most suggestive of a abscess. This is in communication with peripherally enhancing fluid that has decreased in size extending to the right submental skin surface where there is a soft tissue defect on image 63 of series 5. The collection adjacent to the skin defect measures up to 1.0 cm in AP diameter compared to 1.2 cm previously. Enlarged submental lymph nodes are stable and likely reactive. Orbital soft tissues are normal. Parotid glands and submandibular glands are unremarkable. Visualized vasculature is unremarkable. There are no acute osseous findings. No periapical disease is appreciated. The paranasal sinuses and the mastoid air cells remain well-aerated. IMPRESSION: Worsening right facial cellulitis. There is a new soft tissue skin defect within the right submental region (correlate for recent incision and drainage) and there has been a slight interval decrease in size of an abscess within the subcutaneous soft tissues immediately adjacent to the skin defect. Abscess tracking superiorly into the right perimandibular soft tissues on image 130 of series 5 appears mildly increased in size with associated myositis of the right buccinator and zygomaticus muscle. Assessment and plan #Right-sided facial swelling Prior to admission, history of 2 day onset of right-sided facial swelling with progressively worsening and increased pain, leukocytosis noted and positive radiological finding, doesn't respond to outpatient Keflex and Bactrim. Problem list #Facial abscess -On admission patient has low-grade fever and high white blood cell but no tachypnea or tachycardia (doesn't met SIERS criteria), however lactic acid was trended down -Plastic surgery consultation was obtained thanks for recommendation -ID consultation was obtained thanks for recommendation -ENT consultation was obtained given the recent history of strep tonsillitis group G, thanks for recommendation -Per ENT specialist, no relation between his recent tonsillitis and the current fascia maxillary cellulitis -Patient is S/P I&D DAY#1 -Wound packing was removed today by plastic surgeon -Wound culture positive for staph aureus, waiting for sensitivity -High possibility of MRSA, contact isolation per ID -Continue vancomycin DAY#2 -Discontinue Unasyn per ID -Optimal pain medication acetaminophen 650 mg every 6 when necessary, tramadol 50 every 6 when necessary, morphine IV 4 mg every 4 when necessary -Follow-up blood culture negative so far -Patient remained afebrile and white blood cell went down from 24.3 to 16.1 -CBC every day Code full DVT prophylaxis Alps Diet regular Consultation ID, plastic surgery, ENT, general surgery Problem List: 1. Facial abscess Pain Ratin Pain Location: Right facial mandibular Pain Goal: Pain 4 or less Pain Plan: acetaminophen 650 mg every 6 when necessary tramadol 50 every 6 when necessary morphine IV 4 mg every 4 when necessary Tomorrow's Labs & Rationales: ILENE PALOMARES MD 05/12/16 1347: Attending MD Review Statement Attending Statement Attending MD Statement: examined this patient, discuss w/resident/PA/TERMITE CONTROL TECHNICIAN, agreed w/resident/PA/TERMITE CONTROL TECHNICIAN, discussed with family, reviewed EMR data (avail), discussed with nursing, discussed with case mgmt, reviewed images, amended to note Attending Assessment/Plan: The patient was seen and discussed with house staff & plastic surgery. Significant improvement at present on Vanco/Unasyn. Culture growing staph aureus. Will continue current antibiotics pending final results.
[2016-05-12 08:04] LABS: ABSOLUTE BASOPHIL COUNT 0.1 /CUMM (0.0-0.2); ABSOLUTE EOSINOPHIL COUNT 0.4 /CUMM (0.0-0.7); ABSOLUTE GRANULOCYTE CT 11.9 /CUMM (1.4-6.5); ABSOLUTE LYMPH COUNT 2.4 /CUMM (1.2-3.4); ABSOLUTE MONOCYTE COUNT 1.2 /CUMM (0.10-0.60); BASOPHIL % 0.4 % (0.0-2.0); EOSINOPHIL % 2.6 % (0-5); GRANULOCYTE % 74.4 % (42.2-75.2); HEMATOCRIT 42.1 % (42-52); MEAN CORPUSCULAR HGB 28.4 PG (27.0-31.0); MEAN CORPUSCULAR HGB CONC 32.5 G/DL (33.0-37.0); MEAN CORPUSCULAR VOLUME 87.2 FL (80.0-94.0); MEAN PLATELET VOLUME 7.3 FL (7.4-10.4); PLATELET COUNT 353 /CUMM (130-400); RBC DISTRIBUTION WIDTH 13.2 % (11.5-14.5); RED BLOOD CELL CT 4.82 /CUMM (4.70-6.10); WHITE BLOOD CELL COUNT 16.1 /CUMM (4.8-10.8)
--- NOTE | 2016-05-12 10:26 | PN- Plastic Surgery ---
Subjective Subjective: Patient resting in bed. Feels better. Patient seen by Dr. Sosa yesterday who performed I&D of right facial abscess after repeat CT Maxillofacial demonstrated a well defined right perimandibular soft tissue abscess comminicating to submental region. Objective Vital Signs and I&Os Vital Signs Date Time Temp Pulse Resp B/P Pulse O2 O2 Flow FiO2 Ox Delivery Rate 05/12 0616 97.9 58 20 112/68 97 05/11 2228 98.1 77 18 132/86 95 05/11 1424 98.4 65 20 128/80 95 Room Air 05/11 1119 98.4 Intake & Output 05/12 1600 05/12 0800 05/12 0000 05/11 1600 05/11 0800 05/11 0000 Intake Total 900 1600 1285 840 780 Output Total Balance 900 1600 1285 840 780 Intake, IV 600 800 725 600 300 Intake, Oral 300 800 560 240 480 Physical Exam Skin: Right cheek and submental region -decreased erythema, swelling, mild tenderness, purulent drainage noted from wound sites with compression Assessment/Plan Assessment/Plan Right facial cellulitis with abscess resolving -Appreciate General Surgery Consult; Continue local wound care with Iodoform packing and warm compresses - Antibiotics as per ID -HOB elevated -F/U cultures -Plan discussed with patient, medical and ID staff Problem List: 1. Cellulitis of face 2. Facial abscess Attending MD Review Statement Attending Statement Attending MD Statement: examined this patient, discuss w/resident/PA/CEMENT RAILROAD CAR LOADER, discussed w/nursing
--- NOTE | 2016-05-12 11:50 | PN- General Surgery ---
Surgical Brief Attending Note Brief Attending Note: improved. cultures pending. packing can be removed tomorrow and not repacked.
--- NOTE | 2016-05-12 11:57 | PN- Infect Dx ---
Subjective Subjective: Afebrile. He feels somewhat better with decreased pain and swelling over the right mandible. Objective Last 24 Hrs of Vital Signs/I&O Vital Signs Date Time Temp Pulse Resp B/P Pulse O2 O2 Flow FiO2 Ox Delivery Rate 05/12 0516 97.9 58 20 112/68 97 05/11 2228 98.1 77 18 132/86 95 05/11 1424 98.4 65 20 128/80 95 Room Air Intake & Output 05/12 1600 05/12 0800 05/12 0000 Intake Total 900 1600 Output Total Balance 900 1600 Intake, IV 600 800 Intake, Oral 300 800 Physical Exam Other Physical Findings: He appears more comfortable in no acute distress HEENT slightly erythematous pharynx, with no exudate; dentition in good condition; decreased swelling and induration over the right mandible, mildly tender to palpation, with purulent drainage noted from the inferior incision Results Last 24 Hours of Lab Results: Laboratory Tests 05/12 614 Chemistry Sodium (137 - 145 mmol/L) 139 Potassium (3.5 - 5.1 mmol/L) 4.3 Chloride (98 - 107 mmol/L) 99 Carbon Dioxide (22 - 30 mmol/L) 30 Anion Gap (5 - 16) 9 BUN (9 - 20 mg/dL) 6 L Creatinine (0.7 - 1.2 mg/dL) 0.8 Estimated GFR (>60 ml/min) > 60 BUN/Creatinine Ratio (7 - 25 %) 7.5 Hematology CBC w Diff NO MAN DIFF REQ WBC (4.8 - 10.8 /CUMM) 16.1 H RBC (4.70 - 6.10 /CUMM) 4.82 Hgb (14.0 - 18.0 G/DL) 13.7 L Hct (42 - 52 %) 42.1 MCV (80.0 - 94.0 FL) 87.2 MCH (27.0 - 31.0 PG) 28.4 RDW (11.5 - 14.5 %) 13.2 Plt Count (130 - 400 /CUMM) 353 MPV (7.4 - 10.4 FL) 7.3 L Gran % (42.2 - 75.2 %) 74.4 Lymphocytes % (20.5 - 51.1 %) 15.2 L Monocytes % (1.7 - 9.3 %) 7.4 Eosinophils % (0 - 5 %) 2.6 Basophils % (0.0 - 2.0 %) 0.4 Absolute Granulocytes (1.4 - 6.5 /CUMM) 11.9 H Absolute Lymphocytes (1.2 - 3.4 /CUMM) 2.4 Absolute Monocytes (0.10 - 0.60 /CUMM) 1.2 H Absolute Eosinophils (0.0 - 0.7 /CUMM) 0.4 Absolute Basophils (0.0 - 0.2 /CUMM) 0.1 PUBS MCHC (33.0 - 37.0 G/DL) 32.5 L Last 24 Hours of Andrei Results: "Right cheek abscess" positive for Staph aureus Recent Imaging Studies: CT of the maxillofacial area with contrast May 11 revealed increasing soft tissue edema/cellulitis involving the right face with a peripherally enhancing fluid collection within the right perimandibular soft tissues, measuring 1.4 cm Assessment/Plan Impression: Improved status post I&D of 2 ivan-mandibular collections yesterday, with drainage of pus, which is positive for Staph aureus. He remains afebrile with white blood cell count decreasing on Unasyn and Vancomycin, which was apparently restarted yesterday. Suggestion: 1. Contact isolation pending recent culture 2. Warm compresses to the right mandibular area 3. Follow-up recent culture 4. Discontinue Unasyn 5. Continue Vancomycin pending above
[2016-05-12 14:10] VITALS: BP 124/70
--- NOTE | 2016-05-12 14:27 | PN- Student ---
TMIUR ONEILL 05/12/16 1359: Subjective Subjective: Pt is POD 1 s/p facial abscess I&D. Pt was lying in bed with a abdominal bandage over the two incision sites on his right face. He reports the pain is much better since before the I&D. Bandange was not removed as had just been in there and completed an appropriate examination. Per , the right cheek and submental region had decreased erythema, swelling, mild tenderness, and purulent drainage was noted from wound sites with compression. Pt also endorsed purulent drainage while he was showering and hot water made contact with the wound. He was encouraged to continue introducing warm water to the wound to allow release of purulent material. Pt agreed. Surgery recommends that packing be removed on 05/13 and wound can be left open. Pt denies N/V, F/C, SOB, CP. Objective Objective: Vital Signs Date Time Temp Pulse Resp B/P Pulse O2 O2 Flow FiO2 Ox Delivery Rate 05/12 0616 97.9 58 20 112/68 97 05/11 2228 98.1 77 18 132/86 95 05/11 1424 98.4 65 20 128/80 95 Room Air 05/11 1119 98.4 05/11 0541 99.3 88 20 138/72 98 05/10 2219 98.3 72 20 125/75 96 Room Air 05/10 1455 99.5 80 18 150/90 95 Room Air 05/10 0638 99.5 75 18 146/88 96 Room Air 05/10 0215 100.0 78 18 146/94 97 Room Air 05/10 0123 99.3 83 18 143/92 96 Nasal 2.0L Cannula 05/09 2243 97.9 73 18 125/79 98 Room Air 05/09 1948 98.7 77 18 147/83 98 Room Air Laboratory Tests 05/12/16 0615: Anion Gap 9, Estimated GFR > 60, BUN/Creatinine Ratio 7.5, CBC w Diff NO MAN DIFF REQ, RBC 4.82, MCV 87.2, MCH 28.4, RDW 13.2, MPV 7.3 L, Gran % 74.4, Lymphocytes % 15.2 L, Monocytes % 7.4, Eosinophils % 2.6, Basophils % 0.4, Absolute Granulocytes 11.9 H, Absolute Lymphocytes 2.4, Absolute Monocytes 1.2 H, Absolute Eosinophils 0.4, Absolute Basophils 0.1, PUBS MCHC 32.5 L Microbiology Date/Time Procedure - Status Source Growth 05/11 1300 Head/Neck Culture - RES HEAD/NECK STAPH AUREUS 05/11 1300 Anaerobic Culture - RES HEAD/NECK 05/11 1300 Gram Stain - RES HEAD/NECK 05/11 1256 Body Fluid Culture - CAN BODY FLUID Cancelled: ORDER ERROR REORDERED HEAD AND NECK CULTURE 05/11 1256 Gram Stain - CAN BODY FLUID Cancelled: ORDER ERROR REORDERED HEAD AND NECK CULTURE 05/09 2056 Blood Culture - RES BLOOD Pre-OP Maxillofacial CT w/ contrast: Worsening right facial cellulitis. There is a new soft tissue skin defect within the right submental region (correlate for recent incision and drainage) and there has been a slight interval decrease in size of an abscess within the subcutaneous soft tissues immediately adjacent to the skin defect. Abscess tracking superiorly into the right perimandibular soft tissues on image 130 of series 5 appears mildly increased in size with associated myositis of the right buccinator and zygomaticus muscle. Results Results: Laboratory Tests 05/12/16 0615: Anion Gap 9, Estimated GFR > 60, BUN/Creatinine Ratio 7.5, CBC w Diff NO MAN DIFF REQ, RBC 4.82, MCV 87.2, MCH 28.4, RDW 13.2, MPV 7.3 L, Gran % 74.4, Lymphocytes % 15.2 L, Monocytes % 7.4, Eosinophils % 2.6, Basophils % 0.4, Absolute Granulocytes 11.9 H, Absolute Lymphocytes 2.4, Absolute Monocytes 1.2 H, Absolute Eosinophils 0.4, Absolute Basophils 0.1, PUBS MCHC 32.5 L 05/11/16 0624: CBC w Diff NO MAN DIFF REQ, RBC 4.96, MCV 87.1, MCH 28.3, RDW 13.6, MPV 7.3 L, Gran % 85.9 H, Lymphocytes % 5.4 L, Monocytes % 7.5, Eosinophils % 1.0, Basophils % 0.2, Absolute Granulocytes 20.9 H, Absolute Lymphocytes 1.3, Absolute Monocytes 1.8 H, Absolute Eosinophils 0.3, Absolute Basophils 0.1, PUBS MCHC 32.5 L 05/10/16 0935: PT 12.0, INR 1.14 05/10/16 0720: Lactic Acid 0.6 L 05/10/16 0720: Anion Gap 8, Estimated GFR > 60, BUN/Creatinine Ratio 13.8, CBC w Diff NO MAN DIFF REQ, RBC 5.00, MCV 86.7, MCH 28.4, RDW 13.8, MPV 7.5, Gran % 83.5 H, Lymphocytes % 7.4 L, Monocytes % 8.0, Eosinophils % 1.1, Basophils % 0 L, Absolute Granulocytes 19.7 H, Absolute Lymphocytes 1.8, Absolute Monocytes 1.9 H, Absolute Eosinophils 0.3, Absolute Basophils 0, PUBS MCHC 32.8 L 05/09/162323: Lactic Acid Cancelled 05/09/162029: Anion Gap 12, Estimated GFR > 60, BUN/Creatinine Ratio 11.0, Glucose 116 H, Hemoglobin A1c 5.6, Lactic Acid 1.9, Calcium 9.6, CBC w Diff MAN DIFF ORDERED, RBC 5.21, MCV 86.8, MCH 28.0, RDW 13.9, MPV 7.1 L, Gran % 84.6 H, Lymphocytes % 6.4 L, Monocytes % 7.0, Eosinophils % 1.7, Basophils % 0.3, Absolute Granulocytes 20.7 H, Segmented Neutrophils 77 H, Band Neutrophils 3, Absolute Lymphocytes 1.6, Lymphocytes 9 L, Monocytes 9, Absolute Monocytes 1.7 H, Eosinophils 2, Absolute Eosinophils 0.4, Absolute Basophils 0.1, Platelet Estimate ADEQUATE, Normochromic RBCs VERIFIED, PUBS MCHC 32.3 L Microbiology 05/11 1300 HEAD/NECK: Head/Neck Culture - RES STAPH AUREUS 05/11 1300 HEAD/NECK: Anaerobic Culture - RES 05/11 1300 HEAD/NECK: Gram Stain - RES 05/11 125 BODY FLUID: Body Fluid Culture - CAN Cancelled: ORDER ERROR REORDERED HEAD AND NECK CULTURE 05/11 125 BODY FLUID: Gram Stain - CAN Cancelled: ORDER ERROR REORDERED HEAD AND NECK CULTURE 05/09 2056 BLOOD: Blood Culture - RES 05/09 2029 BLOOD: Blood Culture - RES Assessment/Plan Assessment: 40yo male Hospital day #3 POD1 s/p R face abscess I&D recovering well with appropriate sinus packing and controlled pain and plastic surgery on-board for OP follow-up. leukocytosis is greatly improved from 24.3 on 05/11 to 16.1 on . Packing can be removed tomorrow and wounds can be left open. VSS and no other complaints. Plan: Wound care - currently packed with iodoform packing - will F/U with aburto in OP setting - encouraged to keep clean with regular showers - surgery followed up with him this morning and recommended packing removal tomorrow Pain - Tramadol, morphine, tylenol available PRN Leukocytosis - improving since yesterday - medical team agrees that WBC count is not criteria to keep pt admitted as long as he is clinically improving - daily CBC w/ diff - Abx - vanco only as cultures grew only S.aureus - ID on board for abc recommendations Diet - regular as pt can tolerate chewing DVT ppx - ALPs Code status - full code Disposition - Consider d/c today as pt is eating a regular diet and tolerating pain well ILENE GALAN MD 05/14/16 1337: Attending MD Review Statement Attending Sign Off Attending Cosign Statement: I have: examined this patient, reviewed [facility] EMR data, discussd w/resident/PA/ COMMUNITY RESOURCE CONSULTANT, agreed w/resident/PA/COMMUNITY RESOURCE CONSULTANT, amended to note. Other Findings: The patient was seen and discussed with house staff. Agree with above.
--- NOTE | 2016-05-12 15:58 | Patient Discharge Instructions ---
Discharge Instructions General Discharge Information Special Instructions: -Please follow up with your primary care physician within 1 week after discharge -Please follow-up with plastic surgeon Dr. Huerta within 1 week after discharge -Please follow up with surgery Dr. Sosa after discharge Acute Coronary Syndrome Inclusion Criteria At DC or during hospital stay patient has or had the following: ACS DIAGNOSIS No Discharge Core Measures Meds if any: Prescribed or Continued at Discharge Meds if any: NOT Prescribed or Continued at Discharge Congestive Heart Failure Inclusion Criteria At DC or during hospital stay patient has or had the following: CHF DIAGNOSIS No Discharge Core Measures Meds if any: Prescribed or Continued at Discharge Meds if any: NOT Prescribed or Continued at Discharge Cerebrovascular accident Inclusion Criteria At DC or during hospital stay patient has or had the following: CVA/TIA Diagnosis No Discharge Core Measures Meds if any: Prescribed or Continued at Discharge Meds if any: NOT Prescribed or Continued at Discharge Venous thromboembolism Inclusion Criteria VTE Diagnosis No VTE Type NONE VTE Confirmed by (Test) NONE Discharge Core Measures - Per Current guidelines, there needs to be overlap - treatment for the first 5 days of Warfarin therapy. - If discharged on Warfarin prior to 5 days of - overlap therapy, the patient will need to be - assessed for post discharge needs including - *Post discharge parental anticoagulation - *Warfarin and/or parental anticoagulation education - *Follow up date to check INR post discharge At least 5 days overlap therapy as Inpatient Yes Meds if any: Prescribed or Continued at Discharge Note: Overlap Therapy is Warfarin and Anticoagulant Meds if any: NOT Prescribed or Continued at Discharge
[2016-05-12 22:35] VITALS: BP 128/82
[2016-05-13 06:57] VITALS: BP 110/70
--- NOTE | 2016-05-13 07:18 | PN- Housestaff ---
JEFFERY GARNER,[facility] 05/13/16 0717: Subjective Follow-up For: Fascial abscess Subjective: Patient was seen and examined this morning, he remained afebrile, pain and swelling improved significantly. No overnight events reported by the nurse of the patient. Patient is for discharge today. Review of Systems Constitutional: Reports: see HPI. Objective Last 24 Hrs of Vital Signs/I&O Vital Signs Date Time Temp Pulse Resp B/P Pulse O2 O2 Flow FiO2 Ox Delivery Rate 05/13 1407 98.4 05/13 0657 97.6 69 20 110/70 96 Room Air 05/12 2235 97.8 62 20 128/82 99 Room Air Intake & Output 05/13 1600 05/13 0800 05/13 0000 Intake Total 1275 720 240 Output Total Balance 1275 720 240 Intake, IV 375 600 Intake, Oral 900 120 240 Physical Exam General Appearance: Alert, Oriented X3, Cooperative, No Acute Distress Skin: No Rashes HEENT: Atraumatic, PERRLA, EOMI, Mucous Membr. moist/pink Cardiovascular: Regular Rate, Normal S1, Normal S2, No Murmurs Lungs: Clear to Auscultation, Normal Air Movement Abdomen: Normal Bowel Sounds, Soft, No Tenderness Neurological: Normal Gait, Normal Speech, Strength at 5/5 X4 Ext, Normal Tone, Sensation Intact, Cranial Nerves 3-12 NL, Reflexes 2+ Extremities: No Clubbing, No Cyanosis, No Edema, Normal Pulses Assessment/Plan Assessment: This is a 40-year-old gentleman with no known past medical history is presenting for evaluation of progressively worsening right facial swelling with pain. Patient status post 1 day antibiotics with cefazolin and Bactrim with reported increased pain and swelling. CT maxillofacial May 09 FINDINGS: Prominent asymmetric subcutaneous swelling in the right face adjacent to the right mandible and extending to the right submandibular region. There is a 0.8 x 0.7 x approximately 2.0 cm hypodense, thinly peripherally enhancing structure in this region, concerning for phlegmon/early abscess formation (see long images). No other discrete fluid collection is demonstrated. Overlying skin thickening is noted. There is an enlarged submental lymph node measuring 1.8 cm. An additional left parasagittal submental lymph node measures 1 cm. The visualized portions of the submandibular and parotid glands are unremarkable. The aerodigestive tract is patent. The epiglottis and aryepiglottic folds are unremarkable in appearance. No prevertebral soft tissue swelling. Visualized portions of brain demonstrate no acute intracranial abnormalities. No acute orbital abnormalities. The paranasal sinuses are aerated. Dental hardware limits local evaluation. No acute osseous abnormality. No convincing osseous erosion. IMPRESSION: 1. Asymmetric soft tissue swelling about the right inferior face consistent with inflammation/infection. Local phlegmon/early abscess formation (see long images). 2. A prominent submental lymph node is nonspecific and likely reactive. Repeated maxillofacial CT scan 05/11/16 FINDINGS: Increasing soft tissue edema/cellulitis involving the right face inclusive of the right buccal space and superficial to the right masseter muscle and right parotid gland as well as the right perimandibular soft tissues. A peripherally enhancing fluid collection within the right perimandibular soft tissues on image 130 of series 5 measures approximately 1.4 cm in size compared to 0.8 cm previously and is most suggestive of a abscess. This is in communication with peripherally enhancing fluid that has decreased in size extending to the right submental skin surface where there is a soft tissue defect on image 63 of series 5. The collection adjacent to the skin defect measures up to 1.0 cm in AP diameter compared to 1.2 cm previously. Enlarged submental lymph nodes are stable and likely reactive. Orbital soft tissues are normal. Parotid glands and submandibular glands are unremarkable. Visualized vasculature is unremarkable. There are no acute osseous findings. No periapical disease is appreciated. The paranasal sinuses and the mastoid air cells remain well-aerated. IMPRESSION: Worsening right facial cellulitis. There is a new soft tissue skin defect within the right submental region (correlate for recent incision and drainage) and there has been a slight interval decrease in size of an abscess within the subcutaneous soft tissues immediately adjacent to the skin defect. Abscess tracking superiorly into the right perimandibular soft tissues on image 130 of series 5 appears mildly increased in size with associated myositis of the right buccinator and zygomaticus muscle. Assessment and plan #Right-sided facial swelling Prior to admission, history of 2 day onset of right-sided facial swelling with progressively worsening and increased pain, leukocytosis noted and positive radiological finding, doesn't respond to outpatient Keflex and Bactrim. Problem list #Facial abscess -On admission patient has low-grade fever and high white blood cell but no tachypnea or tachycardia (doesn't met SIERS criteria), however lactic acid was trended down -Plastic surgery consultation was obtained thanks for recommendation -ID consultation was obtained thanks for recommendation -ENT consultation was obtained given the recent history of strep tonsillitis group G, thanks for recommendation -Per ENT specialist, no relation between his recent tonsillitis and the current fascia maxillary cellulitis -Patient is S/P I&D DAY#2 -Wound packing was removed today -Wound culture positive for MRSA -Start Bactrim for total of 7 days -Optimal pain medication acetaminophen 650 mg every 6 when necessary, tramadol 50 every 6 when necessary, morphine IV 4 mg every 4 when necessary -Blood culture negative -Patient remained afebrile and white blood cell normalized Code full DVT prophylaxis Alps Diet regular Consultation ID, plastic surgery, ENT, general surgery Patient is for discharge today Problem List: 1. Facial abscess Pain Ratin Pain Location: Right mandibulofacial Pain Goal: Pain 4 or less Pain Plan: Svere pain pathway Tomorrow's Labs & Rationales: None ILENE GALAN MD 05/13/16 2143: Attending MD Review Statement Attending Statement Attending MD Statement: examined this patient, discuss w/resident/PA/OVERLOCK WAISTLINE JOINER, agreed w/resident/PA/OVERLOCK WAISTLINE JOINER, reviewed EMR data (avail), discussed with nursing, discussed with case mgmt, amended to note Attending Assessment/Plan: The patient was seen and discussed with house staff, surgery, and ID. Agree with the plan of care as above.
[2016-05-13 08:19] LABS: ABSOLUTE BASOPHIL COUNT 0.1 /CUMM (0.0-0.2); ABSOLUTE EOSINOPHIL COUNT 0.4 /CUMM (0.0-0.7); ABSOLUTE GRANULOCYTE CT 6.1 /CUMM (1.4-6.5); ABSOLUTE LYMPH COUNT 1.8 /CUMM (1.2-3.4); ABSOLUTE MONOCYTE COUNT 0.7 /CUMM (0.10-0.60); BASOPHIL % 0.7 % (0.0-2.0); EOSINOPHIL % 4.4 % (0-5); GRANULOCYTE % 67.3 % (42.2-75.2); HEMATOCRIT 43.7 % (42-52); MEAN CORPUSCULAR HGB 28.3 PG (27.0-31.0); MEAN CORPUSCULAR HGB CONC 32.7 G/DL (33.0-37.0); MEAN CORPUSCULAR VOLUME 86.6 FL (80.0-94.0); MEAN PLATELET VOLUME 7.3 FL (7.4-10.4); PLATELET COUNT 354 /CUMM (130-400); RBC DISTRIBUTION WIDTH 13.3 % (11.5-14.5); RED BLOOD CELL CT 5.05 /CUMM (4.70-6.10); WHITE BLOOD CELL COUNT 9.1 /CUMM (4.8-10.8)
[2016-05-13] MEDS ORDERED: BACTRIM 400-801 EACH PO ×2 (11:02→11:24)
[2016-05-13] MEDS ORDERED: TRAMADOL HCL50 M1 PO (11:11)
--- NOTE | 2016-05-13 11:48 | PN- Infect Dx ---
Subjective Subjective: Afebrile. He feels improved. Objective Last 24 Hrs of Vital Signs/I&O Vital Signs Date Time Temp Pulse Resp B/P Pulse O2 O2 Flow FiO2 Ox Delivery Rate 05/13 0657 97.6 69 20 110/70 96 Room Air 05/12 2235 97.8 62 20 128/82 99 Room Air 05/12 1410 98.0 64 18 124/70 98 Room Air Intake & Output 05/13 1600 05/13 0800 05/13 0000 Intake Total 720 240 Output Total Balance 720 240 Intake, IV 600 Intake, Oral 120 240 Physical Exam Other Physical Findings: He appears comfortable in no acute distress HEENT minimal swelling over the right mandible, with no drainage from either incision, minimally tender to palpation Results Last 24 Hours of Lab Results: Laboratory Tests 05/13 06 Hematology CBC w Diff NO MAN DIFF REQ WBC (4.8 - 10.8 /CUMM) 9.1 RBC (4.70 - 6.10 /CUMM) 5.05 Hgb (14.0 - 18.0 G/DL) 14.3 Hct (42 - 52 %) 43.7 MCV (80.0 - 94.0 FL) 86.6 MCH (27.0 - 31.0 PG) 28.3 RDW (11.5 - 14.5 %) 13.3 Plt Count (130 - 400 /CUMM) 354 MPV (7.4 - 10.4 FL) 7.3 L Gran % (42.2 - 75.2 %) 67.3 Lymphocytes % (20.5 - 51.1 %) 19.9 L Monocytes % (1.7 - 9.3 %) 7.7 Eosinophils % (0 - 5 %) 4.4 Basophils % (0.0 - 2.0 %) 0.7 Absolute Granulocytes (1.4 - 6.5 /CUMM) 6.1 Absolute Lymphocytes (1.2 - 3.4 /CUMM) 1.8 Absolute Monocytes (0.10 - 0.60 /CUMM) 0.7 H Absolute Eosinophils (0.0 - 0.7 /CUMM) 0.4 Absolute Basophils (0.0 - 0.2 /CUMM) 0.1 PUBS MCHC (33.0 - 37.0 G/DL) 32.7 L Last 24 Hours of Andrei Results: Right cheek culture May 11 positive for MRSA Assessment/Plan Impression: Improved status post I&D of 2 ivan-mandibular collections 2 days ago, with culture positive for MRSA. He remains afebrile with white blood cell count now normal on Vancomycin and, given improvement, he can complete his course of treatment with oral antibiotics. Suggestion: 1. Discontinue Vancomycin 2. Begin Bactrim DS 1 po every 12 hours for 1 week
--- NOTE | 2016-05-13 13:44 | PN- General Surgery ---
Surgical Brief Attending Note Brief Attending Note: remove packing from cheek and do not repack. he should follow up with me next week.
--- NOTE | 2016-05-13 18:15 | Discharge Summary ---
See Addendum Visit Information Visit Dates Admission Date: 05/09/16 Discharge Date: 05/13/16 Hospital Course Course Attending Physician: ILENE GALAN MD Primary Care Physician: PATIENT HAS NO PRIMARY CARE DR Hospital Course: Mr. Loera is 40-year-old gentleman with past medical history significant for migraine not on any medication was admitted on 05/09/16 with chief complaint of progressively worsening right sided facial swelling. Patient reports onset of the swelling 2 days prior to admission, throbbing pain 10 out of 10. Patient presented to emergency department and was prescribed Bactrim and cephalexin. He reports that his swelling worsened without any relief and decided to come back again to the ED today for reevaluation. Patient denied any recent facial trauma, tooth infection, dental work, insect bites, recent facial hair shaving, fever or chills. Of note, patient was seen on April 28 in ED for acute tonsillitis of Streptococcus group was treated as an outpatient with Augmentin and Medrol Dosepak. Patient was admitted to general medical floor for evaluation. Problem list #Facial abscess -On admission patient has low-grade fever and high white blood cell but no tachypnea or tachycardia (doesn't met SIERS criteria), however lactic acid was trended down -Plastic surgery consultation was obtained thanks for recommendation -ID consultation was obtained thanks for recommendation -ENT consultation was obtained given the recent history of strep tonsillitis group G, thanks for recommendation -Per ENT specialist, no relation between his recent tonsillitis and the current fascia maxillary cellulitis -Patient is S/P I&D on 05/11/69 -Wound packing was removed on day of admission -Wound culture positive for MRSA -Patient was started on vancomycin and switched to Bactrim on day of discharge to finish 7 days of antibiotic as an outpatient -Optimal pain medication acetaminophen 650 mg every 6 when necessary, tramadol 50 every 6 when necessary, morphine IV 4 mg every 4 when necessary -Blood culture negative -Patient remained afebrile and white blood cell normalized -Patient was given tramadol 50 mg by mouth every 6 when necessary (20 tablets) on discharge, CT RN PRIVATE DUTY was checked, no narcotic was prescribed for the last 2 years. Code full DVT prophylaxis Alps Diet regular Consultation ID, plastic surgery, ENT, general surgery Allergies: Coded Allergies: No Known Allergies (04/28/16) Disposition Summary Disposition Principal Diagnosis: Facial abscess Additional Diagnosis: MRSA infection Discharge Disposition: home or self care Discharge Instructions General Discharge Information Code Status: Full Code Patient's Diet: Regular diet Patient's Activity: As tolerated Follow-Up Instructions/Appts: -Please follow up with your primary care physician within 1 week after discharge -Please follow-up with plastic surgeon Dr. Huerta within after discharge -Please follow up with surgery Dr. Moreno after discharge Medications at Discharge Discharge Medications: Stop taking the following medications: Sulfamethoxazole/Trimethoprim (Bactrim Ds Tablet) 800 MG-160 MG TABLET ORAL TWICE DAILY Qty = 20 Cephalexin (Keflex) 500 MG CAPSULE ORAL 4 TIMES A DAY Qty = 40 Continue taking these medications: Ibuprofen (Ibuprofen) 800 MG TABLET 1 Tablet ORAL THREE TIMES DAILY as needed for pain Qty = 30 Comments: NOT GIVEN IN HOSPITAL Start taking the following new medications: Tramadol HCl (Tramadol HCl) 50 MG TABLET 50 Milligram ORAL EVERY SIX HOURS NEEDED as needed for PAIN SCALE 7-10 ( SEVERE) Qty = 20 No Refills Comments: Last Taken: 05/12/16 Time: 10:00 AM Sulfamethoxazole/Trimethoprim (Bactrim 400-80 MG Tablet) 400 MG-80 MG TABLET 1 Tablet ORAL TWICE DAILY Qty = 7 No Refills Comments: NOT GIVEN IN HOSPITAL Copies To: SABRA GARNER,NICOLE PEDERSEN MD,IBIS MORENO MD,GUILLE Lockhart Attending MD Review Statement Documenting Attending: ILENE GALAN MD Other Findings: The patient was seen and discussed with house staff. Agree with the plan of care as outlined.
== END 2016-05-13 15:00 | DRG 603 ==
LOC: ENRESERVTM → ENRESERVDT → ERH 19:46 → ENPENDDIS 20:56 → 2NB 20:56 → ERHI 20:56 → 2NB 05-10 02:15
PROVIDERS: Internal Medicine; Physician Assistant; Student in an Organized Health Care Education/Training Program; ADMIT Internal Medicine
PROC: 0J913ZZ Drainage of Face Subcutaneous Tissue and Fascia, Percutaneous Approach (ICD-10-PCS; principal; 2016-05-11)
DX: L02.818 Cutaneous abscess of other sites (principal); L03.211 Cellulitis of face; L73.9 Follicular disorder, unspecified
CPT/HCPCS: 2NBP; 87070; 87075; 87184; 87205; ERO; 36415; 82436; 87040; 87147; 93005; 93010; 96365; 96366; 96375; J1885; J3370; J7060

== ENCOUNTER 2016-07-19 13:43 | Emergency (ER) | payer OTHER ==
[~2016-07-19] VITALS: Ht 180.3 cm; Wt 81.6 kg
[~2016-07-19 13:43] MED LIST changes: +BACTRIM 400-801 EACH PO; +TRAMADOL HCL50 M1 PO
[2016-07-19 16:05] VITALS: BP 134/69
[2016-07-19] MEDS ORDERED: AUGMENTIN 875-1 EACH PO (16:35)
--- NOTE | 2016-07-19 16:36 | ED EAR COMPLAINT ---
History of Present Illness General Chief Complaint: Upper Respiratory Sx/Fever Stated Complaint: COLD SYMPTOMS, R EAR BLOCKED Source: patient Exam Limitations: no limitations Vital Signs & Intake/Output Vital Signs & Intake/Output Vital Signs Date Time Temp Pulse Resp B/P B/P Pulse O2 O2 Flow FiO2 Mean Ox Delivery Rate 07/19 1630 Room Air 07/19 1605 97.6 87 18 134/69 100 Room Air 07/19 1418 98.2 66 16 130/85 98 Room Air Room Air Allergies Coded Allergies: No Known Allergies (07/19/16) Reconcile Medications Amoxicillin/Potassium Clav (Augmentin 875-125 Tablet) 875 MG-125 MG TABLET 1 TAB PO BID otitis media Triage Note: PT TO TRIAGE WITH COUGH AND NASAL CONGESTION, STATES HE HAS A CLOGGED RIGHT EAR ALSO. DENIES FEVERS Triage Nurses Notes Reviewed? yes Onset: Abrupt Duration: day(s):, constant, continues in ED Timing: recent history Injury Environment: home HPI: 40-year-old male comes into emergency room for further evaluation of right ear pain. Symptoms of a going on for the past few days. Some mild runny nose and congestion. Denies any cough or sore throat. Denies any other associated symptoms. Throbbing pain. Continuous. (DENA FABIAN) Past History Travel History Traveled to [place] past 21 day No Medical History Any Pertinent Medical History? 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 No (DENA FABIAN) Review of Systems Review of Systems Constitutional: Reports: see HPI. EENTM: Reports: see HPI. Respiratory: Reports: no symptoms. Cardiovascular: Reports: no symptoms. GI: Reports: no symptoms. Genitourinary: Reports: no symptoms. Musculoskeletal: Reports: no symptoms. Skin: Reports: no symptoms. Neurological/Psychological: Reports: no symptoms. Hematologic/Endocrine: Reports: no symptoms. Immunologic/Allergic: Reports: no symptoms. All Other Systems: Reviewed and Negative (DENA FABIAN) Physical Exam Physical Exam General Appearance: well developed/nourished, mild distress Head: atraumatic Eyes: Bilateral: normal appearance. Ears: Left: Tympanic normal. Right: Tympanic dull, Tympanic red. Nose: normal inspection Mouth/Throat: normal mouth inspection, pharynx normal Neck: normal inspection Cardiovascular/Respiratory: no respiratory distress Back: normal inspection Neurologic/Psych: awake, alert, oriented x 3, normal mood/affect Skin: intact, normal color, warm/dry (DENA FABIAN) Progress Differential Diagnoses I considered the following diagnoses in my evaluation of the patient: Otitis media, otitis externa, mastoiditis, foreign body, Plan of Care: 07/19/2016 10:19:03 PM Patient clinically looks well. Nontoxic-appearing. Symptoms consistent with otitis media. Initial ED EKG: none (DENA FABIAN) Departure Departure Disposition: HOME OR SELF CARE Condition: Stable Clinical Impression Primary Impression: Right otitis media Referrals: PATIENT HAS NO PRIMARY CARE DR (PCP/Family) Additional Instructions: Take Augmentin as prescribed. Take Motrin as needed for pain. Follow-up with primary care doctor. Please go over all results of today's visit with your primary care doctor. Contact your primary care doctor to let them know you were here in the emergency room. There may be nonspecific findings which may not be related to your visit today here in the emergency room but may require further evaluation and chronic monitoring by your primary care doctor. If you had a laceration today the chance of foreign body always remains. You should follow-up with your primary care doctor for recheck in 3-5 days for a wound check. If you had an x-ray done there is a chance that a fracture could have been missed on initial read and you should follow-up with your primary care doctor for repeat x-rays if symptoms persist. If your blood pressure was elevated here in the emergency room please have rechecked by her primary care doctor within the next 48 hours by your primary care doctor. If you were prescribed a narcotic here in the emergency room or any type of controlled substances you're not allowed to drive while taking this medication or operate any type of heavy machinery. Narcotics can make you feel lightheaded dizziness nausea and can cause constipation. You may need to pick up truck driver a stool softener. Thank you for choosing [facility] emergency room. Please return to the emergency room immediately if you have any other concerns worsening of symptoms. Departure Forms: Customer Survey General Discharge Information Prescriptions: Current Visit Scripts Amoxicillin/Potassium Clav (Augmentin 875-125 Tablet) 1 TAB PO BID #20 TAB (DENA FABIAN) PA/RELIABILITY TECHNICIANS Co-Sign Statement Statement: ED Attending supervision documentation- [] I saw and evaluated the patient. I have also reviewed all the pertinent lab results and diagnostic results. I agree with the findings and the plan of care as documented in the PA's/RELIABILITY TECHNICIANS's documentation. [X] I have reviewed the ED Record and agree with the PA's/RELIABILITY TECHNICIANS's documentation. [] Additions or exceptions (if any) to the PAs/RELIABILITY TECHNICIANS's note and plan are summarized below: [] (KERWIN GARNER,NATHALIA Enriquez)
== END 2016-07-19 16:51 ==
LOC: ERH 13:43
DX: H66.91 Otitis media, unspecified, right ear (principal)

== ENCOUNTER 2016-09-25 14:57 | Emergency (ER) | payer OTHER ==
[~2016-09-25] VITALS: Ht 180.3 cm; Wt 85.3 kg
[2016-09-25 15:01] VITALS: BP 134/86
--- NOTE | 2016-09-25 15:07 | ED ANIMAL BITE/WOUND CHECK ---
History of Present Illness General Chief Complaint: Animal/Insect Bite Stated Complaint: ?INSECT BITE Source: patient Exam Limitations: no limitations Vital Signs & Intake/Output Vital Signs & Intake/Output Vital Signs Date Time Temp Pulse Resp B/P B/P Pulse O2 O2 Flow FiO2 Mean Ox Delivery Rate 09/25 1501 97.5 69 18 134/86 99 Room Air ED Intake and Output 09/26 0000 09/25 1200 Intake Total 60 Output Total Balance 60 Intake, Oral 60 Patient 188 lb Weight Weight Reported by Patient Measurement Method Allergies Coded Allergies: No Known Allergies (07/19/16) Reconcile Medications Amoxicillin/Potassium Clav (Augmentin 875-125 Tablet) 875 MG-125 MG TABLET 1 TAB PO BID otitis media Hydrocortisone 1 % CREAM..G. 1 MITCH TOP BID ITCH apply to affected area(s) Sulfamethoxazole/Trimethoprim (Bactrim Ds Tablet) 800 MG-160 MG TABLET 1 TAB PO BID INFECTION Triage Note: C/O PAIN, REDNESS SWELLING TO LEFT UPPER DOREARM, WOKE UP WITH 2 INSECT BITES. Triage Nurses Notes Reviewed? yes Onset: Abrupt Duration: hour(s): (FEW) Timing: single episode today Injury Environment: home Severity: mild, moderate No Modifying Factors: none Associated Symptoms: ITCHING, SWELLING HPI: This is a 40-year-old female who presents to the ER chief complaint of itching and redness to his right forearm. He states he woke up from sleep with 2 areas that he thinks he got an insect bite from. He states it is been very itchy has been rubbing it. There is become swollen. He did not take any Benadryl. He has not taken anything [id number]. History of previous MRSA dental infection per the patient. No fever or chills. Past History Travel History Traveled to [place] past 21 day No Medical History Any Pertinent Medical History? 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 No Review of Systems Review of Systems Constitutional: Denies: chills, fever. EENTM: Reports: no symptoms. Respiratory: Denies: cough, short of breath. Cardiovascular: Denies: chest pain. GI: Denies: abdominal pain. Genitourinary: Reports: no symptoms. Musculoskeletal: Reports: no symptoms. Skin: Reports: erythema. Neurological/Psychological: Reports: no symptoms. Hematologic/Endocrine: Denies: bruising, bleeding, polyuria, polydipsia. Immunologic/Allergic: Denies: splenectomy. All Other Systems: Reviewed and Negative Physical Exam Physical Exam General Appearance: well developed/nourished, alert, awake, mild distress Head: atraumatic Eyes: Bilateral: PERRL, EOMI. Ears, Nose, Throat: hearing grossly normal Neck: normal inspection, supple Respiratory: normal breath sounds Cardiovascular: regular rate/rhythm Back: normal inspection Extremities: normal range of motion, 2 AREAS OF ERYTHEMA/LOCAL INDURATION, 2 SCAB LIKE AREAS, POSSIBLE INSECT BITES Neurologic/Psych: awake, alert, oriented x 3, normal mood/affect Skin: intact, normal color, warm/dry Lymphatic: no anterior cervical charlie Diagram Body: 1) BITE 2) BITE Progress Differential Diagnosis: INSECT BITE, LOCAL REACTION, CELLULITIS Plan of Care: Current Medications Sig/Anisha Start time Last Medication Dose Stop Time Status Admin Prednisone 60 MG ONCE ONE 09/25 1530 AC 09/25 1531 Departure Departure Time of Disposition: 1520 Disposition: HOME OR SELF CARE Condition: Stable Clinical Impression Primary Impression: Local reaction to insect sting Referrals: PATIENT HAS NO PRIMARY CARE DR (PCP/Family) Additional Instructions: Take Benadryl [id number] as needed for itching. Use the topical cream as directed. Apply ice packs to the area. Fill out the antibiotic prescription if the area of redness starts to swell or if you have any the antibiotic if the area of redness starts to spread or if he have any fever or chills. Return as needed. Departure Forms: Customer Survey General Discharge Information Prescriptions: Current Visit Scripts Hydrocortisone 1 MITCH TOP BID #30 GM apply to affected area(s) Sulfamethoxazole/Trimethoprim (Bactrim Ds Tablet) 1 TAB PO BID #20 TAB
[2016-09-25] MEDS ORDERED: HYDROCORTISO453.6 G1 TOP (15:20)
[2016-09-25] MEDS ORDERED: BACTRIM DS TAB1 EACH PO (15:20)
[2016-09-27] MEDS ORDERED: AMOXICILLIN500 M3 PO (04:00)
[2016-09-27] MEDS ORDERED: IBUPROFEN600 M1 PO (05:12)
== END 2016-09-25 15:34 ==
LOC: ERH 14:57
DX: S50.861A Insect bite (nonvenomous) of right forearm, initial encounter (principal); W57.XXXA Bitten or stung by nonvenomous insect and other nonvenomous arthropods, initial encounter; Y93.9 Activity, unspecified; Y92.009 Unspecified place in unspecified non-institutional (private) residence as the place of occurrence of the external cause

== ENCOUNTER 2017-03-08 23:13 | Emergency (ER) | payer OTHER ==
[~2017-03-08] VITALS: Ht 180.3 cm; Wt 87.5 kg
[~2017-03-08 23:13] MED LIST changes: +AMOXICILLIN500 M3 PO; +HYDROCORTISO453.6 G1 TOP; +IBUPROFEN600 M1 PO
[2017-03-09 00:03] VITALS: BP 134/87
--- NOTE | 2017-03-09 00:33 | ED SKIN/ALLERGY COMPLAINT ---
History of Present Illness General Chief Complaint: General Adult Stated Complaint: " WOKE UP LIKE SADIA" RED NOSE PAINFUL HX MRSA Source: patient Exam Limitations: no limitations Vital Signs & Intake/Output Vital Signs & Intake/Output Vital Signs Date Time Temp Pulse Resp B/P B/P Pulse O2 O2 Flow FiO2 Mean Ox Delivery Rate 03/09 0003 96.0 60 18 134/87 09 Room Air Allergies Coded Allergies: No Known Allergies (09/27/16) Triage Note: TRIAGE: PATIENT TO ER FROM HOME REPORTING "WOKE UP W/ RED NOSE, THOUGHT IT WAS A ZIT." ENTIRE TIP OF NOSE NOTED W/ REDNESS AND ?SWELLING. Triage Nurses Notes Reviewed? yes Onset: Gradual Duration: hour(s): Timing: single episode today Severity: moderate Location: face HPI: 41-year-old male with history of MRSA presents emergency department complaining of red rash on nose beginning this morning when he woke up. Patient describes rash as painful, worsening throughout the day. Patient states that he had similar rash on left arm and right cheek in the past for which she was told he had a MRSA infection. Patient states that at that time he required hospital admission for approximately one week for IV antibiotics. Patient denies fevers, chills, abdominal pain, nausea, vomiting, sore throat. (Leslie AMAYA,Marily Vela) Reconcile Medications Cephalexin (Keflex) 500 MG CAPSULE 1 CAP PO BID CELLULITIS Mupirocin Calcium (Bactroban Nasal) 2 % OINT...G. 1 GM NASB BID CELLULITIS apply one-half in each nostril Sulfamethoxazole/Trimethoprim (Bactrim Ds Tablet) 800 MG-160 MG TABLET 1 TAB PO BID CELLULITIS (Bianca GARNER,Navjot Cameron) Past History Travel History Traveled to [place] past 21 day No Medical History Any Pertinent Medical History? 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 No (Marily Grider) Review of Systems Review of Systems Constitutional: Reports: no symptoms. EENTM: Reports: no symptoms. Respiratory: Reports: no symptoms. Cardiovascular: Reports: no symptoms. GI: Reports: no symptoms. Genitourinary: Reports: no symptoms. Musculoskeletal: Reports: no symptoms. Skin: Reports: see HPI. Neurological/Psychological: Reports: no symptoms. Hematologic/Endocrine: Reports: no symptoms. Immunologic/Allergic: Reports: no symptoms. All Other Systems: Reviewed and Negative (Marily Grider) Physical Exam Physical Exam General Appearance: well developed/nourished, no apparent distress, alert, awake Head: atraumatic, normal appearance Eyes: Bilateral: normal appearance, PERRL, EOMI. Ears, Nose, Throat: normal pharynx, hearing grossly normal, ertyhema, tenderness , warmth to right nose with mild swelling, no crusting or lesions Neck: normal inspection, supple, full range of motion, right tender anterior cervical LAD Respiratory: normal breath sounds, no respiratory distress, lungs clear Cardiovascular: regular rate/rhythm Back: normal inspection, normal range of motion Extremities: normal inspection, normal range of motion Neurologic/Psych: awake, alert, oriented x 3 Skin: see erythema of nose as described above Skin Problem Location: face (Marily Grider) Progress Differential Diagnosis: abscess/cellulitis, allergic reaction, anaphylaxis, angioedema, contact dermatitis, drug reaction, shingles, urticaria, impetigo Plan of Care: Patient's rash is consistent with cellulitis. Patient has a history of 2 prior episodes of MRSA requiring hospital admissions. The patient's rash is localized at this time. Patient was started on Bactroban ointment, Bactrim and Keflex for cellulitis. Patient instructed to return to the emergency department in one day for reevaluation of cellulitis. Patient also instructed to take Clorox bath to help remove bacteria from his skin. The patient is nontoxic appearing, vital signs are stable, no acute distress. The patient agrees with the plan of care. The patient was discussed with Dr. Valenzuela who agrees with this plan. (Marily Grider) Departure Departure Disposition: HOME OR SELF CARE Condition: Stable Clinical Impression Primary Impression: Cellulitis Qualifiers: Site of cellulitis: face Qualified Code: L03.211 - Cellulitis of face Referrals: Patient Has No Primary Care Dr (PCP/Family) Additional Instructions: Begin antibiotics tonight. Apply Bactroban ointment to nose as well as inside your nose. Apply Clorox to warm bath water to soak your body in tonight as well as soak your nose with then rinse off with clean water. Return tomorrow between 5pm-1am for a recheck of your nose. Return sooner with any other concerns. Please note that there might be incidental findings in your evaluation that are unrelated to the current emergency department visit. Please notify your primary care doctor about this emergency department visit in order to obtain and review all of the testing performed so that these incidental findings can be monitored as needed. If you had an x-ray performed, please understand that some fractures may not be seen on the initial set of x-rays. If your symptoms persist you might need a repeat set of x-rays to check for such a fracture. If you had a laceration evaluated, please understand that foreign bodies such as glass or wood may not be visible to the naked eye or on plain x-rays. If the wound becomes red, swollen, increasingly more painful or if there is any drainage from the wound, please have it reevaluated by a physician for the possibility of a retained foreign body. If you're unable to follow up as outlined in the discharge instructions please return to the emergency department. Thank you for choosing the [facility] Emergency Department for your care. It was a pleasure to serve you today. Departure Forms: Customer Survey General Discharge Information Prescriptions: Current Visit Scripts Cephalexin (Keflex) 1 CAP PO BID #20 CAP Sulfamethoxazole/Trimethoprim (Bactrim Ds Tablet) 1 TAB PO BID #20 TAB Mupirocin Calcium (Bactroban Nasal) 1 GM NASB BID #10 GM apply one-half in each nostril (Marily Grider) PA/CLINICAL SERVICES ASSISTANT Co-Sign Statement Statement: ED Attending supervision documentation- [] I saw and evaluated the patient. I have also reviewed all the pertinent lab results and diagnostic results. I agree with the findings and the plan of care as documented in the PA's/CLINICAL SERVICES ASSISTANT's documentation. [x] I have reviewed the ED Record and agree with the PA's/CLINICAL SERVICES ASSISTANT's documentation. [] Additions or exceptions (if any) to the PAs/CLINICAL SERVICES ASSISTANT's note and plan are summarized below: [] (Bianca GARNER,Navjot Cameron)
[2017-03-09] MEDS ORDERED: BACTRIM DS TAB1 EACH PO (00:35)
[2017-03-09] MEDS ORDERED: KEFLEX500 M1 PO (00:35)
[2017-03-09] MEDS ORDERED: BACTROBAN NASAL1 GM NASB (00:36)
== END 2017-03-09 00:43 ==
LOC: ERH 23:13
DX: L03.211 Cellulitis of face (principal)

== ENCOUNTER 2017-03-09 21:05 | Emergency (ER) | payer OTHER ==
[~2017-03-09] VITALS: Ht 180.3 cm; Wt 87.5 kg
[~2017-03-09 21:05] MED LIST changes: +BACTROBAN NASAL1 GM NASB
[2017-03-09 21:16] VITALS: BP 129/85
--- NOTE | 2017-03-09 21:42 | ED SKIN/ALLERGY COMPLAINT ---
History of Present Illness General Chief Complaint: General Adult Stated Complaint: "SWOLLEN FACE" SEEN HERE LAST PM FOR SAME Source: patient Exam Limitations: no limitations Vital Signs & Intake/Output Vital Signs & Intake/Output Vital Signs Date Time Temp Pulse Resp B/P B/P Pulse O2 O2 Flow FiO2 Mean Ox Delivery Rate 03/09 2115 97.7 65 18 129/85 98 Room Air ED Intake and Output 03/10 0000 03/09 1200 Intake Total Output Total Balance Patient 193 lb Weight Weight Reported by Patient Measurement Method Allergies Coded Allergies: No Known Allergies (09/27/16) Reconcile Medications Cephalexin (Keflex) 500 MG CAPSULE 1 CAP PO BID CELLULITIS Mupirocin Calcium (Bactroban Nasal) 2 % OINT...G. 1 GM NASB BID CELLULITIS apply one-half in each nostril Sulfamethoxazole/Trimethoprim (Bactrim Ds Tablet) 800 MG-160 MG TABLET 1 TAB PO BID CELLULITIS Triage Note: PT TO ER C/C PAIN/SWELLING TO NOSE. SEEN LAST NIGHT FOR SAME. NOSE APPEARS RED/INFLAMED. HX OF MRSA Triage Nurses Notes Reviewed? yes Onset: Gradual Duration: day(s): Timing: recent history Severity: moderate Severity Numbers: 10 Location: face HPI: 41-year-old male with history of MRSA presents emergency department for reevaluation of cellulitis. Patient was seen yesterday for cellulitis of and was started on Bactroban,Bactrim,Keflex. Patient began his medications as prescribed. He reports increasing redness, swelling, pain to his nose since last visit yesterday. Pain described as 10/10. Patient denies fevers, chills, dysphasia, dyspnea, abdominal pain, nausea, vomiting. (Leslie AMAYA,Marily Vela) Past History Travel History Traveled to [place] past 21 day No Medical History Any Pertinent Medical History? 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 No (Marily Grider) Review of Systems Review of Systems Constitutional: Reports: no symptoms. EENTM: Reports: see HPI. Respiratory: Reports: no symptoms. Cardiovascular: Reports: no symptoms. GI: Reports: no symptoms. Genitourinary: Reports: no symptoms. Musculoskeletal: Reports: no symptoms. Skin: Reports: see HPI. Neurological/Psychological: Reports: no symptoms. Hematologic/Endocrine: Reports: no symptoms. Immunologic/Allergic: Reports: no symptoms. All Other Systems: Reviewed and Negative (Marily Grider) Physical Exam Physical Exam General Appearance: well developed/nourished, no apparent distress, alert, awake Head: atraumatic, normal appearance Eyes: Bilateral: normal appearance. Ears, Nose, Throat: normal pharynx, hearing grossly normal, erythema, swelling, warmth, tenderness to right nose with 2mm pustule in right nostril Neck: normal inspection, supple, full range of motion, tender right anterior cervical LAD Respiratory: no respiratory distress Back: normal inspection, normal range of motion Extremities: normal inspection, normal range of motion Neurologic/Psych: awake, alert, oriented x 3 Skin: see rash on nose as described above (Marily Grider) Progress Differential Diagnosis: abscess/cellulitis, allergic reaction, angioedema, contact dermatitis, shingles, urticaria Plan of Care: Orders Procedure Date/time Status BLOOD CULTURE 03/09 2140 Active COMPREHENSIVE METABOLIC PANEL 03/09 2140 Complete CBC WITHOUT DIFFERENTIAL 03/09 2140 Complete Laboratory Tests 03/09/172214: CBC w Diff NO MAN DIFF REQ, RBC 5.45, MCV 86.9, MCH 28.5, RDW 13.4, MPV 6.9 L, Gran % 73.8, Lymphocytes % 14.8 L, Monocytes % 9.2, Eosinophils % 2.1, Basophils % 0.1, Absolute Granulocytes 9.8 H, Absolute Lymphocytes 2.0, Absolute Monocytes 1.2 H, Absolute Eosinophils 0.3, Absolute Basophils 0, PUBS MCHC 32.7 L 03/09/17 2210: Anion Gap 17 H, Estimated GFR > 60, BUN/Creatinine Ratio 12.2, Glucose 120 H, Calcium 9.4, Total Bilirubin 0.7, AST 22, ALT 46, Alkaline Phosphatase 109, Total Protein 7.1, Albumin 4.4, Globulin 2.7, Albumin/Globulin Ratio 1.6 Microbiology 03/09 2219 BLOOD: Blood Culture - RECD 03/09 2214 BLOOD: Blood Culture - RECD Cellulitis appears to be worsening slightly compared to exam yesterday. Patient medicated with dose of IV antibiotics here in the emergency department. Labs show mild leukocytosis. Cellulitis is still localized to the nose, will continue patient's trial of oral antibiotics as an outpatient. Patient to follow-up in 2 days for reevaluation or sooner if his cellulitis is worsening. Patient is afebrile, nontoxic appearing, vital signs are stable. The patient agrees with the plan of care. (Leslie AMAYA,Marily Vela) Departure Departure Disposition: HOME OR SELF CARE Condition: Stable Clinical Impression Primary Impression: Cellulitis Qualifiers: Site of cellulitis: face Qualified Code: L03.211 - Cellulitis of face Referrals: Patient Has No Primary Care Dr (PCP/Family) Additional Instructions: Continue all antibiotics and ointment as prescribed to yesterday. Also continue warm compresses and Clorox bathing as discussed yesterday. Return in 2 days for reevaluation of your skin infection. Return sooner if rash is spreading significantly or he develop fever, abdominal pain, worsening symptoms or other concerns. Please note that there might be incidental findings in your evaluation that are unrelated to the current emergency department visit. Please notify your primary care doctor about this emergency department visit in order to obtain and review all of the testing performed so that these incidental findings can be monitored as needed. If you had an x-ray performed, please understand that some fractures may not be seen on the initial set of x-rays. If your symptoms persist you might need a repeat set of x-rays to check for such a fracture. If you had a laceration evaluated, please understand that foreign bodies such as glass or wood may not be visible to the naked eye or on plain x-rays. If the wound becomes red, swollen, increasingly more painful or if there is any drainage from the wound, please have it reevaluated by a physician for the possibility of a retained foreign body. If you're unable to follow up as outlined in the discharge instructions please return to the emergency department. Thank you for choosing the [facility] Emergency Department for your care. It was a pleasure to serve you today. Departure Forms: Customer Survey General Discharge Information (Leslie AMAYA,Marily Vela) PA/RAIL SIGNAL WORKER Co-Sign Statement Statement: ED Attending supervision documentation- [] I saw and evaluated the patient. I have also reviewed all the pertinent lab results and diagnostic results. I agree with the findings and the plan of care as documented in the PA's/RAIL SIGNAL WORKER's documentation. [X] I have reviewed the ED Record and agree with the PA's/RAIL SIGNAL WORKER's documentation. [] Additions or exceptions (if any) to the PAs/RAIL SIGNAL WORKER's note and plan are summarized below: [] (Jose Ramon GARNER,Comfort)
[2017-03-09 22:24] LABS: ABSOLUTE BASOPHIL COUNT 0 /CUMM (0.0-0.2); ABSOLUTE EOSINOPHIL COUNT 0.3 /CUMM (0.0-0.7); ABSOLUTE GRANULOCYTE CT 9.8 /CUMM (1.4-6.5); ABSOLUTE MONOCYTE COUNT 1.2 /CUMM (0.10-0.60); BASOPHIL % 0.1 % (0.0-2.0); EOSINOPHIL % 2.1 % (0-5); GRANULOCYTE % 73.8 % (42.2-75.2); HEMATOCRIT 47.3 % (42-52); MEAN CORPUSCULAR HGB 28.5 PG (27.0-31.0); MEAN CORPUSCULAR HGB CONC 32.7 G/DL (33.0-37.0); MEAN CORPUSCULAR VOLUME 86.9 FL (80.0-94.0); MEAN PLATELET VOLUME 6.9 FL (7.4-10.4); PLATELET COUNT 374 /CUMM (130-400); RBC DISTRIBUTION WIDTH 13.4 % (11.5-14.5); RED BLOOD CELL CT 5.45 /CUMM (4.70-6.10); WHITE BLOOD CELL COUNT 13.3 /CUMM (4.8-10.8)
== END 2017-03-09 22:57 ==
LOC: ERH 21:05
PROVIDERS: Physician Assistant
DX: J34.0 Abscess, furuncle and carbuncle of nose (principal)
CPT/HCPCS: 87040; 96374